=== PATIENT | male | born 1975 | race American Indian/Alaskan Native ===

== ENCOUNTER 2016-12-29 21:15 | Emergency (ER) | payer OTHER ==
[2016-12-29 21:44] LABS: Urine Drugs of Abuse Note Disclamer
[2016-12-29 21:47] LABS: Basophils % (Auto) 0.5 % (0.0-1.8); Eosinophils % (Auto) 0.1 % (0.0-4.3); Hematocrit 37.5 % (35.5-45.6); Hemoglobin 12.6 gm/dl (11.8-15.2); Mean Corpuscular HGB Conc 34 % (32-34); Mean Corpuscular Hemoglobin 31 pg (28-32); Mean Corpuscular Volume 91 fl (84-94); Platelet Count 269 K/mm3 (140-440); Red Blood Count 4.12 M/mm3 (3.65-5.03); Red Cell Distribution Width 14.3 % (13.2-15.2); White Blood Count 9.8 K/mm3 (4.5-11.0)
[2016-12-29 21:50] LABS: Bilirubin,Urine NEG (Negative); Blood,Urine NEG (Negative); Ketones,Urine NEG (Negative); Leukocyte Esterase,Urine NEG (Negative); Mucus,Urine FEW /HPF; Nitrite,Urine NEG (Negative); Protein,Urine <15 mg/dL mg/dL (Negative); Urobilinogen,Urine < 2.0 mg/dL (<2.0); WBC,Urine < 1.0 /HPF (0.0-6.0)
[2016-12-29 21:56] LABS: Anion Gap 19 mmol/L; BUN/Creatinine Ratio 18.88; Blood Urea Nitrogen 17 mg/dL (9-20); Carbon Dioxide 24 mmol/L (22-30); Chloride 102.4 mmol/L (98-107); Glucose 86 mg/dL (75-100); Potassium 4.3 mmol/L (3.6-5.0); Sodium 141 mmol/L (137-145)
--- NOTE | 2016-12-29 22:44 | Emergency Department Report ---
ED Psych HPI - General Chief Complaint: Psych Stated Complaint: MEDICAL CLEARANCE Time Seen by Provider: 12/29/16 21:52 Source: patient Mode of arrival: Ambulatory - History of Present Illness Initial Comments: 41-year-old male with a history of psychiatric illness here with complaint of suicidality. Patient states he recently used cocaine and feels depressed. States that he wants to harm himself. Could not give me a defined plan. Recently discharged from [facility]. Denies other medical problems. States that he is on lithium but hasn't taken it for 5 months. MD Complaint: suicidal ideation -: Sudden Associated Psychiatric Symptoms: depression, suicidal ideation Quality: constant Improves With: none Worsens With: none Context: recent drug abuse, not taking psychiatric Associated Symptoms: denies other symptoms, headache - Related Data Home Medications Medication Instructions Recorded Confirmed Last Taken No Known Home Medications [No 12/14/15 01/14/16 Unknown Reported Home Medications] Allergies Allergy/AdvReac Type Severity Reaction Status Date / Time No Known Allergies Allergy Verified 01/13/16 23:21 ED Review of Systems ROS: Stated complaint: MEDICAL CLEARANCE Other details as noted in HPI Comment: All other systems reviewed and negative Constitutional: denies: chills, fever Eyes: denies: eye pain, eye discharge, vision change ENT: denies: ear pain, throat pain Respiratory: denies: cough, shortness of breath, wheezing Cardiovascular: denies: chest pain, palpitations Endocrine: no symptoms reported Gastrointestinal: denies: abdominal pain, nausea, diarrhea Genitourinary: denies: urgency, dysuria Musculoskeletal: denies: back pain, joint swelling, arthralgia Skin: denies: rash, lesions Neurological: denies: headache, weakness, paresthesias Psychiatric: denies: anxiety, depression Hematological/Lymphatic: denies: easy bleeding, easy bruising ED Past Medical Hx - Past Medical History Previous Medical History?: Yes Hx Congestive Heart Failure: No Hx Diabetes: No Hx Liver Disease: Yes (Hep C.) Hx Psychiatric Treatment: Yes (BIPOLAR) Hx Asthma: No Hx COPD: No Hx HIV: No - Surgical History Past Surgical History?: Yes Additional Surgical History: hernia repair - Family History Family history: no significant - Social History Smoking Status: Current Every Day Smoker Substance Use Type: Alcohol, Cocaine, Other - Medications Home Medications: Home Medications Medication Instructions Recorded Confirmed Last Taken Type No Known Home Medications [No 12/14/15 01/14/16 Unknown History Reported Home Medications] ED Physical Exam - General Limitations: No Limitations General appearance: alert, in no apparent distress - Head Head exam: Present: atraumatic, normocephalic - Eye Eye exam: Present: normal appearance. Absent: scleral icterus, conjunctival injection - ENT ENT exam: Present: mucous membranes moist - Neck Neck exam: Present: normal inspection - Respiratory Respiratory exam: Present: normal lung sounds bilaterally. Absent: respiratory distress - Cardiovascular Cardiovascular Exam: Present: regular rate, normal rhythm. Absent: systolic murmur, diastolic murmur, rubs, gallop - GI/Abdominal GI/Abdominal exam: Present: soft, normal bowel sounds - Rectal Rectal exam: Present: deferred - Extremities Exam Extremities exam: Present: normal inspection - Back Exam Back exam: Present: normal inspection - Neurological Exam Neurological exam: Present: alert, oriented X3 - Psychiatric Psychiatric exam: Present: normal affect, depressed, suicidal ideation - Skin Skin exam: Present: warm, dry, intact, normal color. Absent: rash ED Course Vital Signs 12/29/16 21:21 Temperature 99.1 F Pulse Rate 90 Respiratory 18 Rate Blood Pressure 150/90 O2 Sat by Pulse 98 Oximetry ED Medical Decision Making - Lab Data Result diagrams: 12/29/16 21:30 12/29/16 21:30 Laboratory Results - last 24 hr 12/29/16 12/29/16 12/29/16 21:30 21:30 21:38 WBC 9.8 RBC 4.12 Hgb 12.6 Hct 37.5 MCV 91 MCH 31 MCHC 34 RDW 14.3 Plt Count 269 Lymph % (Auto) 13.0 L [place] % (Auto) 6.7 Eos % (Auto) 0.1 Baso % (Auto) 0.5 Lymph # 1.3 [place] # 0.7 Eos # 0.0 Baso # 0.0 Seg Neutrophils % 79.7 H Seg Neutrophils # 7.8 H Sodium 141 Potassium 4.3 Chloride 102.4 Carbon Dioxide 24 Anion Gap 19 BUN 17 Creatinine 0.9 Estimated GFR > 60 BUN/Creatinine Ratio 18.88 Glucose 86 Calcium 9.0 Urine Color Yellow Urine Turbidity Clear Urine pH 7.0 Ur Specific [place] 1.021 Urine Protein <15 mg/dl Urine Glucose (UA) Neg Urine Ketones Neg Urine Blood Neg Urine Nitrite Neg Urine Bilirubin Neg Urine Urobilinogen < 2.0 Ur Leukocyte Esterase Neg Urine WBC (Auto) < 1.0 Urine RBC (Auto) 2.0 Urine Mucus Few Urine Opiates Screen Urine Methadone Screen Ur Barbiturates Screen Ur Phencyclidine Scrn Ur Amphetamines Screen U Benzodiazepines Scrn U Marijuana (THC) Screen 12/29/16 21:38 WBC RBC Hgb Hct MCV MCH MCHC RDW Plt Count Lymph % (Auto) [place] % (Auto) Eos % (Auto) Baso % (Auto) Lymph # [place] # Eos # Baso # Seg Neutrophils % Seg Neutrophils # Sodium Potassium Chloride Carbon Dioxide Anion Gap BUN Creatinine Estimated GFR BUN/Creatinine Ratio Glucose Calcium Urine Color Urine Turbidity Urine pH Ur Specific [place] Urine Protein Urine Glucose (UA) Urine Ketones Urine Blood Urine Nitrite Urine Bilirubin Urine Urobilinogen Ur Leukocyte Esterase Urine WBC (Auto) Urine RBC (Auto) Urine Mucus Urine Opiates Screen Presumptive negative Urine Methadone Screen Presumptive negative Ur Barbiturates Screen Presumptive negative Ur Phencyclidine Scrn Presumptive negative Ur Amphetamines Screen Presumptive negative U Benzodiazepines Scrn Presumptive negative U Marijuana (THC) Screen Presumptive negative - Medical Decision Making 41-year-old male here with complaint of suicidality. Plan a 1013. Patient is medically clear for further evaluation. Critical care attestation.: If time is entered above; I have spent that time in minutes in the direct care of this critically ill patient, excluding procedure time. ED Disposition Clinical Impression: Suicidal ideation, Cocaine abuse Disposition: DC/TX-65 PSY HOSP/PSY UNIT Is pt being admited?: No Condition: Stable
[2016-12-30] MEDS ORDERED: NACL 0.9% 1000 ML 0 ML ONE (12:17)
--- NOTE | 2016-12-30 17:07 | Consultation ---
History of Present Illness - Reason for Consult Consult date: 12/30/16 Reason for consult: psychiatric evaluation - Chief Complaint Chief complaint: "It's not worth going forward." 41-year-old male seen for psychiatric evaluation in the ER. He states he brought himself to the ER for suicidal ideation, hopeless, helpless ideation, and a plan to overdose on cocaine. He reports spending his entire paycheck on cocaine and losing a good job and everything because of cocaine. Patient states he recently used cocaine and feels depressed. He denies other illicit substance use or alcohol use. He reports a history of bipolar disorder. States that he is on lithium 300mg hs and zoloft 200mg daily but hasn't taken it for 5 months. He reports going to [facility] (last time 02/2016) x before and did well until he relapsed 7 months ago. He wants to return there and has spoken with Mr. Zepeda, the leader. He is under the impression he may return after stabilization of current symptoms. He describes a history of manic episodes when he had sustained abstinence. He reports a history of delusional episodes with auditory hallucinations, but denies psychotic symptoms now. Medications and Allergies Allergies Allergy/AdvReac Type Severity Reaction Status Date / Time No Known Allergies Allergy Verified 01/13/16 23:21 Home Medications Medication Instructions Recorded Confirmed Last Taken Type No Known Home Medications [No 12/14/15 01/14/16 Unknown History Reported Home Medications] Past psychiatric history - Past Medical History Past Medical History: hepatitis (C) - past Psychiatric treatment and history Psych: Bipolar - Social History Social history: other (lost his job and care. His children live in [place]) Mental Status Exam - Vital signs Last Vital Signs Temp 98.5 F 12/30/16 12:27 Pulse 65 12/30/16 12:27 Resp 16 12/30/16 12:27 BP 134/81 12/30/16 12:27 Pulse Ox 99 12/30/16 12:27 - Exam Orientation: time, place, person Affect: depressed Mood: other (expansive) Thought content: other (suicidal ideation with a plan. no HI) Thought Process: Intact Perceptions: none Speech: other (hyperverbal) Concentration: distractible Motor activity: normal Level of consciousness: alert Memory: Intact Sleep Symptoms: Difficulty Falling Asleep Appetite: decreased Interaction: cooperative Results Result Diagrams: 12/29/16 21:30 12/29/16 21:30 Abnormal lab results 12/29/16 Range/Units 21:30 Lymph % (Auto) 13.0 L (13.4-35.0) % Seg Neutrophils % 79.7 H (40.0-70.0) % Seg Neutrophils # 7.8 H (1.8-7.7) K/mm3 All other labs normal. Assessment and Plan Assessment and plan: Impression: cocaine use disorder bipolar disorder, historical diagnosis suicidal with a plan. UDS + for cocaine Recommendation: Start [place] 300mg bid for mood stabilization/depressive symptoms. If patient in the ER in 5 days, a level will be drawn. His current labs were reviewed. No contraindications for the use of lithium. The patient is agreeable to restarting it. Continue 1013 and transfer to inpatient psychiatric facility for crisis stabilization We will contact [facility] to determine if he could return soon.
[2016-12-30] MEDS: ESKALITH PO SCH (23:05)
[2016-12-31] MEDS: ESKALITH PO SCH ×2 (10:00→22:09)
--- NOTE | 2016-12-31 14:27 | Progress Note ---
Subjective - Reason for Consult Consult date: 12/31/16 Reason for consult: follow up - Chief Complaint Chief complaint: "I'm still depressed." 41-year-old male seen for psychiatric evaluation in the ER. He states he brought himself to the ER for suicidal ideation, hopeless, helpless ideation, and a plan to overdose on cocaine. He reported spending his entire paycheck on cocaine and losing a good job and everything because of cocaine. He is focused on going to rehab. He wants to return to [facility] and has spoken with Esthela Duane, the leader. He asks that we speak with Sam, the director. He is under the impression he may return after stabilization of current symptoms. He continues to report depressive symptoms and paranoia. He started lithium and reports no side effects. Mental Status Exam - Vital signs Last Vital Signs Temp 98.5 F 12/31/16 00:00 Pulse 72 12/31/16 00:00 Resp 18 12/31/16 10:00 BP 124/60 12/31/16 00:00 Pulse Ox 100 12/31/16 10:00 Assessment and Plan - Exam Orientation: time, place, person Affect: depressed Mood: calm Thought content: passive SI, no HI Thought Process: Intact Perceptions: none Speech: other (hyperverbal) Concentration: distractible Motor activity: normal Level of consciousness: alert Memory: Intact Sleep Symptoms: Difficulty Falling Asleep Appetite: decreased Interaction: cooperative Assessment and plan: Impression: cocaine use disorder bipolar disorder, historical diagnosis suicidal with a plan. UDS + for cocaine Recommendation: Start [place] 300mg bid for mood stabilization/depressive symptoms. If patient in the ER in 5 days, a level will be drawn. His current labs were reviewed. No contraindications for the use of lithium. The patient is agreeable to restarting it. Continue 1013 and transfer to inpatient psychiatric facility for crisis stabilization We will contact [facility] to determine if he could return soon.
[2017-01-01] MEDS: ESKALITH PO SCH ×2 (10:15→21:50)
--- NOTE | 2017-01-01 16:44 | Progress Note ---
Subjective - Reason for Consult Consult date: 01/01/17 Reason for consult: follow up - Chief Complaint Chief complaint: "My eyes have been heavy when I take the medicine." 41-year-old male seen for psychiatric follow in the ER. He states he brought himself to the ER for suicidal ideation, hopeless, helpless ideation, and a plan to overdose on cocaine. He wants to return to [facility] and has spoken with Esthela Duane, the leader. He continues to report depressive symptoms and paranoia. He started lithium and reports being hungrier than normal and his eyes are heavy. He does not want the lithium scheduled changed.. Mental Status Exam - Vital signs Last Vital Signs Temp 98.7 F 12/31/16 22:00 Pulse 64 12/31/16 22:00 Resp 16 12/31/16 22:00 BP 118/60 12/31/16 22:00 Pulse Ox 99 12/31/16 12:30 Assessment and Plan - Exam Orientation: time, place, person Affect: depressed Mood: calm Thought content: passive SI, no HI Thought Process: Intact Perceptions: none Speech: regular rate and rhythm Concentration: fair Motor activity: normal Level of consciousness: alert Memory: Intact Sleep Symptoms: fair Appetite: increased Interaction: cooperative Assessment and plan: Impression: cocaine use disorder bipolar disorder, historical diagnosis suicidal with a plan. UDS + for cocaine Recommendation: Continue [place] 300mg bid for mood stabilization/depressive symptoms. If patient in the ER in 5 days, a level will be drawn. His current labs were reviewed. No contraindications for the use of lithium. The patient is agreeable to restarting it. Continue 1013 and transfer to inpatient psychiatric facility for crisis stabilization He is recommended to discuss his plan to return to [facility] after inpatient treatment at [facility]. He has been accepted but awaiting transport time.
[2017-01-02] MEDS: ESKALITH PO SCH (09:55)
--- NOTE | 2017-01-02 13:23 | Progress Note ---
Subjective - Reason for Consult Consult date: 01/02/17 Reason for consult: Psychiatry Follow-up - Chief Complaint Chief complaint: "I look forward to being discharged" 41-year-old male seen for psychiatric follow in the ER. He states he brought himself to the ER for suicidal ideation, hopeless, helpless ideation, and a plan to overdose on cocaine. Today patient is calm and cooperative during the assessment. He stated that he want to return to [facility] (residential) and continue outpatient psy services for Bipolar DO and substance abuse (cocaine ) with the [facility]. He stated his main concern is staying off the cocaine. He denies SI/HI's and AVH's. He rate his depression, 3/10, with 10 being the worse. He stated an increased appetite since he started lithium. He does not want the lithium scheduled changed. Mental Status Exam - Vital signs Last Vital Signs Temp 98.5 F 01/02/17 08:48 Pulse 68 01/02/17 08:48 Resp 18 01/02/17 08:48 BP 115/71 01/02/17 08:48 Pulse Ox 100 01/02/17 08:48 - Exam Narrative exam: MSE: Appearance: cooperative, anxious Behavior: regular eye contact Speech: regular rate and tone Mood: "well" Affect: congruent to mood Thought Process: linear Thought Content: denies SI/HI's and AVH's Motor Activity: ambulatory Cognition: A/Ox 3 Insight: fair Judgment: fair Assessment and Plan Impression: Historical Dx: Bipolar DO. Substance Use DO (cocaine). Today patient is calm and cooperative during the assessment. Patient denies SI/AVH's. Patient is no threat to self. Recommendation: Rescind 1013. Continue [place] 300mg Po BID for mood stabilization/depressive symptoms. Patient will follow up with [facility] for outpatient psy services. Patient stated that he will return to [facility] homeless residential. Informed patient to get lithium level checked in 2 days with the [facility]. He started the medication 12/30/2016. Nurse Practical involvement, patient may need transportation to [facility] homeless residential.
--- NOTE | 2017-01-02 15:24 | Emergency Department Report ---
ED Psych HPI - General Chief Complaint: Psych Stated Complaint: MEDICAL CLEARANCE Time Seen by Provider: 12/29/16 21:52 Source: patient Mode of arrival: Ambulatory - History of Present Illness Quality: constant Improves With: none Worsens With: none Associated Symptoms: denies other symptoms, headache - Related Data Home Medications Medication Instructions Recorded Confirmed Last Taken No Known Home Medications [No 12/14/15 12/31/16 Unknown Reported Home Medications] Allergies Allergy/AdvReac Type Severity Reaction Status Date / Time No Known Allergies Allergy Verified 01/13/16 23:21 ED Review of Systems ROS: Stated complaint: MEDICAL CLEARANCE Other details as noted in HPI Constitutional: denies: chills, fever Eyes: denies: eye pain, eye discharge, vision change ENT: denies: ear pain, throat pain Respiratory: denies: cough, shortness of breath, wheezing Cardiovascular: denies: chest pain, palpitations Endocrine: no symptoms reported Gastrointestinal: denies: abdominal pain, nausea, diarrhea Genitourinary: denies: urgency, dysuria Musculoskeletal: denies: back pain, joint swelling, arthralgia Skin: denies: rash, lesions Neurological: denies: headache, weakness, paresthesias Psychiatric: denies: anxiety, depression Hematological/Lymphatic: denies: easy bleeding, easy bruising ED Past Medical Hx - Past Medical History Previous Medical History?: Yes Hx Congestive Heart Failure: No Hx Diabetes: No Hx Liver Disease: Yes (Hep C.) Hx Psychiatric Treatment: Yes (BIPOLAR) Hx Asthma: No Hx COPD: No Hx HIV: No - Surgical History Past Surgical History?: Yes Additional Surgical History: hernia repair - Social History Smoking Status: Current Every Day Smoker Substance Use Type: Alcohol, Cocaine, Other - Medications Home Medications: Home Medications Medication Instructions Recorded Confirmed Last Taken Type No Known Home Medications [No 12/14/15 12/31/16 Unknown History Reported Home Medications] ED Physical Exam - General Limitations: No Limitations General appearance: alert, in no apparent distress ED Course Vital Signs 12/29/16 12/30/16 12/30/16 21:21 10:27 12:27 Temperature 99.1 F 98.5 F Pulse Rate 90 65 Respiratory 18 18 16 Rate Blood Pressure 150/90 Blood Pressure 134/81 [Left] Blood Pressure [Right] O2 Sat by Pulse 98 98 99 Oximetry 12/31/16 12/31/16 12/31/16 00:00 10:00 12:30 Temperature 98.5 F 98.4 F Pulse Rate 72 84 Respiratory 18 18 18 Rate Blood Pressure Blood Pressure 124/60 128/78 [Left] Blood Pressure [Right] O2 Sat by Pulse 100 100 99 Oximetry 12/31/16 01/01/17 01/01/17 22:00 10:15 22:00 Temperature 98.7 F 98.7 F 98.8 F Pulse Rate 64 65 94 H Respiratory 16 18 18 Rate Blood Pressure Blood Pressure 118/60 111/62 94/59 [Left] Blood Pressure [Right] O2 Sat by Pulse 100 98 Oximetry 01/02/17 08:48 Temperature 98.5 F Pulse Rate 68 Respiratory 18 Rate Blood Pressure Blood Pressure [Left] Blood Pressure 115/71 [Right] O2 Sat by Pulse 98 Oximetry ED Medical Decision Making - Lab Data Result diagrams: 12/29/16 21:30 12/29/16 21:30 - Medical Decision Making Patient is calm and has no further suicidal thoughts at this point. Tender T and rescinded by psychiatry. Plan to discharge with follow-up at [facility] versus [facility]. Resources provided by case management. Critical care attestation.: If time is entered above; I have spent that time in minutes in the direct care of this critically ill patient, excluding procedure time. ED Disposition Clinical Impression: Suicidal thoughts Disposition: DC-01 TO HOME OR SELFCARE Is pt being admited?: No Condition: Stable Instructions: Suicide Prevention for Adults (ED) Referrals: PRIMARY CARE, [Primary Care Provider] - 3-5 Days
[2017-01-02 15:49] VITALS: BP 100/71
== END 2017-01-02 15:52 | disposition home or self-care (01) ==
LOC: ED 21:15 → EEVIPCON 21:15 → ED 01-02 15:52
DX: R45.851 Suicidal ideations (principal); F14.10 Cocaine abuse, uncomplicated; F31.9 Bipolar disorder, unspecified; F17.200 Nicotine dependence, unspecified, uncomplicated
CPT/HCPCS: 36415; 80048; 80307; 81001; 85025; 99285; G0480; 80320; J7030

== ENCOUNTER 2017-01-15 00:22 | Emergency (ER) | payer OTHER ==
[2017-01-15] MEDS ORDERED: GEODON IM ONE (01:03)
--- NOTE | 2017-01-15 01:09 | Emergency Department Report ---
ED Psych HPI - General Chief Complaint: Psych Stated Complaint: MH EVAL/SUICIDAL Time Seen by Provider: 01/15/17 00:58 Source: patient Mode of arrival: Ambulatory - History of Present Illness Initial Comments: 41 years old and so schizophrenia presented to the ER very agitated and complaining of suicidal thoughts. Patient stated that he is angry that his his left him and his mother is getting more confused. Patient stated that he will go [facility] and on Monday if he is not here. Complaint: suicidal ideation -: Gradual Associated Psychiatric Symptoms: depression, suicidal ideation, racing thoughts - Related Data Home Medications Medication Instructions Recorded Confirmed Last Taken No Known Home Medications [No 12/14/15 12/31/16 Unknown Reported Home Medications] Allergies Allergy/AdvReac Type Severity Reaction Status Date / Time No Known Allergies Allergy Verified 01/15/17 00:38 ED Review of Systems ROS: Stated complaint: MH EVAL/SUICIDAL Other details as noted in HPI Comment: All other systems reviewed and negative Constitutional: denies: chills, fever Respiratory: cough, shortness of breath. denies: orthopnea, SOB with exertion Cardiovascular: denies: chest pain, dyspnea on exertion Neurological: denies: headache ED Past Medical Hx - Past Medical History Previous Medical History?: Yes Hx Congestive Heart Failure: No Hx Diabetes: No Hx Liver Disease: Yes (Hep C.) Hx Psychiatric Treatment: Yes (BIPOLAR) Hx Asthma: No Hx COPD: No Hx HIV: No - Surgical History Past Surgical History?: Yes Additional Surgical History: hernia repair - Social History Smoking Status: Current Every Day Smoker Substance Use Type: None - Medications Home Medications: Home Medications Medication Instructions Recorded Confirmed Last Taken Type No Known Home Medications [No 12/14/15 12/31/16 Unknown History Reported Home Medications] ED Physical Exam - General Limitations: No Limitations General appearance: alert, other (very agitated) - Head Head exam: Present: atraumatic, normocephalic - Eye Eye exam: Present: normal appearance - ENT ENT exam: Present: normal exam - Neck Neck exam: Present: normal inspection, full ROM. Absent: tenderness, meningismus - Respiratory Respiratory exam: Present: normal lung sounds bilaterally. Absent: wheezes, rales, rhonchi, stridor - Cardiovascular Cardiovascular Exam: Present: regular rate, normal rhythm, normal heart sounds - GI/Abdominal GI/Abdominal exam: Present: soft. Absent: tenderness, guarding, rebound, rigid - Extremities Exam Extremities exam: Present: normal inspection - Back Exam Back exam: Present: normal inspection - Neurological Exam Neurological exam: Present: alert, oriented X3, CN II-XII intact - Skin Skin exam: Present: warm, normal color ED Course Vital Signs 01/15/17 00:39 Temperature 98.5 F Pulse Rate 95 H Respiratory 18 Rate Blood Pressure 120/93 O2 Sat by Pulse 99 Oximetry Critical care attestation.: If time is entered above; I have spent that time in minutes in the direct care of this critically ill patient, excluding procedure time. ED Disposition Clinical Impression: Acute psychosis, Suicidal ideation Disposition: DC/TX-65 PSY HOSP/PSY UNIT Is pt being admited?: No Condition: Stable
[2017-01-15 01:24] LABS: Urine Drugs of Abuse Note Disclamer
[2017-01-15 01:29] LABS: Basophils % (Auto) 0.6 % (0.0-1.8); Eosinophils % (Auto) 0.1 % (0.0-4.3); Hematocrit 37.7 % (35.5-45.6); Hemoglobin 12.7 gm/dl (11.8-15.2); Mean Corpuscular HGB Conc 34 % (32-34); Mean Corpuscular Hemoglobin 30 pg (28-32); Mean Corpuscular Volume 90 fl (84-94); Platelet Count 281 K/mm3 (140-440); Red Blood Count 4.18 M/mm3 (3.65-5.03); White Blood Count 10.6 K/mm3 (4.5-11.0)
[2017-01-15 01:32] LABS: Bilirubin,Urine NEG (Negative); Blood,Urine NEG (Negative); Ketones,Urine NEG (Negative); Leukocyte Esterase,Urine NEG (Negative); Mucus,Urine 1+ /HPF; Nitrite,Urine NEG (Negative); RBC,Urine < 1.0 /HPF (0.0-6.0); Urobilinogen,Urine < 2.0 mg/dL (<2.0)
[2017-01-15 01:51] LABS: Alanine Aminotransferase 12 units/L (7-56); Albumin 4.2 g/dL (3.9-5); Albumin/Globulin Ratio 1.1 %; Alkaline Phosphatase 70 units/L (35-129); Anion Gap 21 mmol/L; BUN/Creatinine Ratio 17.77; Blood Urea Nitrogen 16 mg/dL (9-20); Calcium 9.4 mg/dL (8.4-10.2); Carbon Dioxide 19 mmol/L (22-30); Chloride 103.9 mmol/L (98-107); Glucose 54 mg/dL (75-100); Potassium 3.3 mmol/L (3.6-5.0); Sodium 141 mmol/L (137-145)
--- NOTE | 2017-01-15 17:27 | Consultation ---
History of Present Illness - Reason for Consult Consult date: 01/15/17 Reason for consult: psychiatric evaluation - Chief Complaint Chief complaint: "I dont want to be here anymore." 41 years old who presented to the ER very agitated and complaining of suicidal thoughts. Patient stated that he is angry that his his left him and his mother is getting more confused. On arrival to the ER, per the record, patient stated that he will go [facility] and on Monday if he is not here.He was in the ER for similar reasons 2 weeks ago. He reports relapsing on crack again. He reports feeling guilty and angry at himself for repeatedly relapsing. When he left the ER 2 weeks ago, he went to the [facility], and later the [facility] He did well for a week and then relapsed. He states something must be wrong with him because he keeps relapsing when things start going well for him. He reports paranoia and depression and mood swings. He reports being agitated last night because he was waiting in the ER. He denies AVH. No homicidal ideation.He describes a history of manic episodes when he had sustained abstinence. Past psychiatric history - Past Medical History Past Medical History: hepatitis (C) - past Psychiatric treatment and history Psych: Bipolar - Social History Social history: other (lost his job and car. His children live in [place]) Medications and Allergies Allergies Allergy/AdvReac Type Severity Reaction Status Date / Time No Known Allergies Allergy Verified 01/15/17 00:38 Home Medications Medication Instructions Recorded Confirmed Last Taken Type No Known Home Medications [No 12/14/15 01/15/17 Unknown History Reported Home Medications] Mental Status Exam - Vital signs Last Vital Signs Temp 98.3 F 01/15/17 08:04 Pulse 62 01/15/17 08:04 Resp 16 01/15/17 08:05 BP 124/70 01/15/17 08:04 Pulse Ox 99 01/15/17 08:05 - Exam Narrative exam: Orientation: time, place, person Affect: congruent Mood: depressed Thought content: other (suicidal ideation with a plan. no HI) Thought Process: Intact Perceptions: none Speech: other (hyperverbal) Concentration: distractible Motor activity: normal Level of consciousness: alert Memory: Intact Sleep Symptoms: Difficulty Falling Asleep Appetite: decreased Interaction: cooperative Results Result Diagrams: 01/15/17 01:10 01/15/17 01:10 Abnormal lab results 01/15/17 01/15/17 01/15/17 Range/Units 01:10 01:10 01:10 [place] % (Auto) 7.4 H (0.0-7.3) % Seg Neutrophils % 70.4 H (40.0-70.0) % Potassium 3.3 L (3.6-5.0) mmol/L Carbon Dioxide 19 L (22-30) mmol/L Glucose 54 L (75-100) mg/dL Salicylates < 0.3 L (2.8-20.0) mg/dL All other labs normal. Assessment and Plan Assessment and plan: Impression: cocaine use disorder bipolar disorder, historical diagnosis suicidal UDS + for cocaine Recommendation: Start [place] 300mg bid for mood stabilization/depressive symptoms. If patient in the ER in 5 days, a level will be drawn. His current labs were reviewed. No contraindications for the use of lithium. The patient is agreeable to restarting it. Continue 1013 and transfer to inpatient psychiatric facility for crisis stabilization
[2017-01-15] MEDS: ESKALITH PO SCH (21:33)
[2017-01-16] MEDS: ESKALITH PO SCH ×2 (11:06→22:46)
--- NOTE | 2017-01-16 12:04 | Progress Note ---
Subjective - Reason for Consult Consult date: 01/16/17 Reason for consult: Psychiatry Follow-up - Chief Complaint Chief complaint: "How are you" 41 years old who presented to the ER very agitated and complaining of suicidal thoughts. Today patient is calm and cooperative during the assessment. He stated hearing intermittent voices about "dying" since last night. He stated this being his first experience dealing with voices. He stated he want to stay off cocaine and see his kids in [place], but he feels that their mom will not allow it. He described his sleep last night as erratic. He denies HI's and VH' s. He denies a poor appetite. Mental Status Exam - Vital signs Last Vital Signs Temp 98.7 F 01/16/17 11:47 Pulse 64 01/16/17 11:47 Resp 20 01/16/17 11:47 BP 126/67 01/16/17 11:47 Pulse Ox 99 01/16/17 11:47 - Exam Narrative exam: MSE: Appearance: calm, cooperative Behavior: regular eye contact Speech: regular rate and tone Mood: "depressed" Affect: congruent to mood Thought Process: linear Thought Content: denies SI and VH's Motor Activity: ambulatory Cognition: A/Ox 3 Insight: variable Judgment: variable Assessment and Plan Impression: Historical Dx: Bipolar Dx. Unspecified Mood Do with psy features. Substance Use DO (cocaine). Today patient is calm and cooperative during the assessment. Positive for cocaine. SI's. Recommendation/Plan: Continue 1013 with placement to inpatient psy services. Continue [place] 300mg bid for mood stabilization/depression. If patient is still in the ER in 5 days, a lithium level will be drawn. His current labs were reviewed. No contraindications for the use of lithium. Will assess patient's sleep and intermittent AH's in 24 hours.
[2017-01-17] MEDS: ESKALITH PO SCH ×2 (10:28→22:46)
--- NOTE | 2017-01-17 12:44 | Progress Note ---
Subjective - Reason for Consult Consult date: 01/17/17 Reason for consult: Psychiatry Follow-up - Chief Complaint Chief complaint: "The voices are gone" 41 years old who presented to the ER very agitated and complaining of suicidal thoughts. Today patient is calm and cooperative during the assessment. He stated that the voices has ceased. He stated that he would like to return back to the [facility] ([facility] He denies SI/HI's, AVH's, and depression. He stated that he want to stay off the cocaine and willing to do rehab services once again. Patient have questions about getting his social security card. He denies any side effects of his medications. Mental Status Exam - Vital signs Last Vital Signs Temp 98.7 F 01/16/17 11:47 Pulse 64 01/16/17 11:47 Resp 20 01/16/17 11:47 BP 126/67 01/16/17 11:47 Pulse Ox 98 01/17/17 07:45 - Exam Narrative exam: MSE: Appearance: calm, cooperative Behavior: regular eye contact Speech: regular rate and tone Mood: "much better" Affect: congruent to mood Thought Process: circumstantial Thought Content: denies SI/HI's and AVH's Motor Activity: ambulatory Cognition: A/Ox 3 Insight: variable Judgment: variable Assessment and Plan Impression: Historical Dx: Bipolar Dx. Unspecified Mood Do with psychotic features. Substance Use DO (cocaine). Today patient is calm and cooperative during the assessment. Positive for cocaine. Recommendation/Plan: Evaluate 1013 in 24 hours to determine proper dispo. Continue [place] 300mg bid for mood stabilization/depression. If patient is still in the ER in 5 days, a lithium level will be drawn. His current labs were reviewed. No contraindications for the use of lithium. Patient seen by Psychologist Educational to inform him on the process of getting a social security card.
[2017-01-18] MEDS: ESKALITH PO SCH ×2 (11:14→21:35)
--- NOTE | 2017-01-19 10:00 | Progress Note ---
Subjective - Reason for Consult Consult date: 01/19/17 Reason for consult: Psychiatry Follow-up - Chief Complaint Chief complaint: "Can I leave today" 41 years old who presented to the ER very agitated and complaining of suicidal thoughts. Today patient is calm and cooperative during the assessment. He stated that he would like to be discharged today. He denies SI/HI's, AVH's, and depression. He stated that he would like to return to [facility] ([facility]) . He stated once he is discharged, getting his social security card is priority. He denies any side effects of Harold. Mental Status Exam - Vital signs Last Vital Signs Temp 98.1 F 01/18/17 19:45 Pulse 65 01/18/17 19:45 Resp 18 01/18/17 19:45 BP 131/90 01/18/17 19:45 Pulse Ox 100 01/18/17 19:45 - Exam Narrative exam: MSE: Appearance: calm, cooperative Behavior: regular eye contact Speech: regular rate and tone Mood: "well" Affect: congruent to mood Thought Process: linear Thought Content: denies SI/HI's and AVH's Motor Activity: ambulatory Cognition: A/Ox 3 Insight: fair Judgment: fair Assessment and Plan Impression: Historical Dx: Bipolar Dx. Unspecified Mood Do with psychotic features. Substance Use DO (cocaine). Today patient is calm and cooperative during the assessment. Positive for cocaine. [place] 0.2. Recommendation/Plan: Rescind 1013. Continue [place] 300 mg bid for mood stabilization/depression. Strap Cutter provided information to patient reference the process on how to get a social security card. Patient will return to [facility] ([facility] Discussed with patient s/s of lithium toxicity. Explained to patient the importance of getting his lithium level checked when indicated. Patient was given outpatient rehab/psy services information for [facility].
[2017-01-19] MEDS: ESKALITH PO SCH (10:37)
[2017-01-19 12:46] VITALS: BP 115/68
[2017-01-19] MEDS ORDERED: K-DUR PO ONE (17:51)
== END 2017-01-19 19:12 | disposition home or self-care (01) ==
LOC: ED 00:22 → EEVIPCON 00:22 → ED 01-19 19:12
DX: R45.851 Suicidal ideations (principal); F23 Brief psychotic disorder; F17.200 Nicotine dependence, unspecified, uncomplicated
CPT/HCPCS: 36415; 80053; 80178; 80307; 81001; 82962; 85025; 99284; G0480; 80320

== ENCOUNTER 2017-01-29 05:20 | Emergency (ER) | payer OTHER ==
[2017-01-29 05:29] VITALS: BP 124/83
[2017-01-29 06:06] LABS: Hematocrit 38.1 % (35.5-45.6); Hemoglobin 12.7 gm/dl (11.8-15.2); Red Blood Count 4.25 M/mm3 (3.65-5.03); White Blood Count 8.4 K/mm3 (4.5-11.0)
[2017-01-29 06:07] LABS: Basophils % (Auto) 0.7 % (0.0-1.8); Eosinophils % (Auto) 0.1 % (0.0-4.3); Mean Corpuscular HGB Conc 34 % (32-34); Mean Corpuscular Hemoglobin 30 pg (28-32); Mean Corpuscular Volume 90 fl (84-94); Platelet Count 273 K/mm3 (140-440); Red Cell Distribution Width 13.9 % (13.2-15.2)
[2017-01-29 06:14] LABS: Anion Gap 19 mmol/L; Blood Urea Nitrogen 20 mg/dL (9-20); Calcium 9.4 mg/dL (8.4-10.2); Carbon Dioxide 23 mmol/L (22-30); Chloride 102.9 mmol/L (98-107); Glucose 91 mg/dL (75-100); Potassium 3.8 mmol/L (3.6-5.0); Sodium 141 mmol/L (137-145)
== END 2017-01-29 08:00 | disposition left against medical advice (07) ==
LOC: ED 05:20
DX: R45.851 Suicidal ideations (principal); Z53.21 Procedure and treatment not carried out due to patient leaving prior to being seen by health care provider
CPT/HCPCS: 36415; 80048; 85025; G0480; 80320

== ENCOUNTER 2017-02-18 03:52 | Emergency (ER) | payer SELFPAY ==
[2017-02-18 04:53] LABS: Basophils % (Auto) 0.5 % (0.0-1.8); Eosinophils % (Auto) 0.1 % (0.0-4.3); Hemoglobin 11.9 gm/dl (11.8-15.2); Mean Corpuscular HGB Conc 34 % (32-34); Mean Corpuscular Hemoglobin 30 pg (28-32); Mean Corpuscular Volume 89 fl (84-94); Platelet Count 256 K/mm3 (140-440); Red Blood Count 3.93 M/mm3 (3.65-5.03); Red Cell Distribution Width 13.4 % (13.2-15.2); White Blood Count 8.1 K/mm3 (4.5-11.0)
[2017-02-18 05:05] LABS: Anion Gap 17 mmol/L; BUN/Creatinine Ratio 17.77; Blood Urea Nitrogen 16 mg/dL (9-20); Calcium 8.8 mg/dL (8.4-10.2); Carbon Dioxide 24 mmol/L (22-30); Chloride 103.4 mmol/L (98-107); Glucose 82 mg/dL (75-100); Sodium 140 mmol/L (137-145)
[2017-02-18 07:24] LABS: Urine Drugs of Abuse Note Disclamer
[2017-02-18 08:00] LABS: Bilirubin,Urine NEG (Negative); Blood,Urine NEG (Negative); Ketones,Urine TR mg/dL (Negative); Leukocyte Esterase,Urine NEG (Negative); Mucus,Urine 1+ /HPF; Nitrite,Urine NEG (Negative); Protein,Urine <15 mg/dL mg/dL (Negative)
[2017-02-18] MEDS ORDERED: MORPHINE IV ONE (11:53)
[2017-02-18] MEDS ORDERED: ZOFRAN IV ONE (11:53)
[2017-02-18] MEDS ORDERED: NITRO-BID 2% TP ONE (11:53)
[2017-02-18] MEDS ORDERED: ASPIRIN PO ONE (11:54)
--- NOTE | 2017-02-18 11:59 | Emergency Department Report ---
HPI - General Chief Complaint: Psych Time Seen by Provider: 02/18/17 11:42 - HPI HPI: Room 13 The patient is a 41-year-old male presented with a chief complaint of suicidal ideation. The patient states yesterday evening at 19:00 he attempted to kill himself by overdosing on cocaine. The patient states he smoked approximately $ 200 worth of cocaine at that time. Patient denies any other recent attempts at harming himself. The patient states that since he has smoked cocaine he has had constant substernal chest heaviness associated with shortness of breath, nausea without vomiting and diaphoresis. Patient states he also had palpitations at one point. Location: Chest, mental status Duration: Since 19:00 Quality: [see above] Severity: 08/29 Modifying factors: [see above] Context: [see above] Mode of transportation: Unknown ED Past Medical Hx - Past Medical History Previous Medical History?: Yes Hx Liver Disease: Yes (Hep C.) Hx Psychiatric Treatment: Yes (BIPOLAR) - Surgical History Past Surgical History?: Yes Additional Surgical History: hernia repair - Family History Family history: no significant - Social History Smoking Status: Current Every Day Smoker (1/2 pack per day) Substance Use Type: Alcohol (occasional), Cocaine - Medications Home Medications: Home Medications Medication Instructions Recorded Confirmed Last Taken Type [place] Carbonate [Eskalith] 300 mg PO BID #60 capsule 01/19/17 Unknown Rx ED Review of Systems ROS: Stated complaint: SUICIDE ATT. Other details as noted in HPI Comment: All other systems reviewed and negative Constitutional: diaphoresis. denies: chills, fever Eyes: denies: eye pain, eye discharge, vision change ENT: denies: ear pain, throat pain Respiratory: shortness of breath Cardiovascular: chest pain Endocrine: no symptoms reported Gastrointestinal: nausea. denies: vomiting Genitourinary: denies: urgency, dysuria Musculoskeletal: denies: back pain, joint swelling, arthralgia Skin: denies: rash, lesions Neurological: denies: headache, weakness, paresthesias Psychiatric: denies: anxiety, depression Hematological/Lymphatic: denies: easy bleeding, easy bruising Physical Exam - Physical Exam Vital Signs: Vital Signs 02/18/17 02/18/17 02/18/17 03:57 09:12 11:46 Temperature 98.4 F 97.6 F Pulse Rate 83 52 L Respiratory 18 18 20 Rate Blood Pressure 129/90 121/76 O2 Sat by Pulse 99 100 Oximetry Physical Exam: GENERAL: The patient is well-developed well-nourished male sleeping on stretcher not appearing to be in acute distress. Awakened HEENT: Normocephalic. Atraumatic. Extraocular motions are intact. Patient has moist mucous membranes. NECK: Supple. Trachea midline CHEST/LUNGS: Clear to auscultation. There is no respiratory distress noted. HEART/CARDIOVASCULAR: Regular. There is no tachycardia. There is no gallop rub or murmur. ABDOMEN: Abdomen is soft, nontender. Patient has normal bowel sounds. There is no abdominal distention. SKIN: There is no rash. There is no edema. There is no diaphoresis. NEURO: The patient is awake, alert, and oriented. The patient is cooperative. The patient has normal speech MUSCULOSKELETAL: There is no evidence of acute injury. ED Course Vital Signs 02/18/17 02/18/17 02/18/17 03:57 09:12 11:46 Temperature 98.4 F 97.6 F Pulse Rate 83 52 L Respiratory 18 18 20 Rate Blood Pressure 129/90 121/76 O2 Sat by Pulse 99 100 Oximetry ED Medical Decision Making - Lab Data Result diagrams: 02/18/17 04:24 02/18/17 04:24 Laboratory Tests 02/18/17 02/18/17 02/18/17 04:24 04:24 04:24 WBC 8.1 RBC 3.93 Hgb 11.9 Hct 35.0 L MCV 89 MCH 30 MCHC 34 RDW 13.4 Plt Count 256 Lymph % (Auto) 20.4 [place] % (Auto) 4.7 Eos % (Auto) 0.1 Baso % (Auto) 0.5 Lymph # 1.7 Coffee # 0.4 Eos # 0.0 Baso # 0.0 Seg Neutrophils % 74.3 H Seg Neutrophils # 6.0 Sodium 140 Potassium 4.0 Chloride 103.4 Carbon Dioxide 24 Anion Gap 17 BUN 16 Creatinine 0.9 Estimated GFR > 60 BUN/Creatinine Ratio 17.77 Glucose 82 Calcium 8.8 Total Creatine Kinase CK-MB (CK-2) CK-MB (CK-2) Rel Index Troponin T Urine Color Urine Turbidity Urine pH Ur Specific [place] Urine Protein Urine Glucose (UA) Urine Ketones Urine Blood Urine Nitrite Urine Bilirubin Urine Urobilinogen Ur Leukocyte Esterase Urine WBC (Auto) Urine RBC (Auto) Urine Mucus Salicylates Urine Opiates Screen Urine Methadone Screen Acetaminophen Ur Barbiturates Screen Ur Phencyclidine Scrn Ur Amphetamines Screen U Benzodiazepines Scrn [place] Urine Cocaine Screen U Marijuana (THC) Screen Plasma/Serum Alcohol < 0.01 02/18/17 02/18/17 02/18/17 04:24 04:24 07:20 WBC RBC Hgb Hct MCV MCH MCHC RDW Plt Count Lymph % (Auto) [place] % (Auto) Eos % (Auto) Baso % (Auto) Lymph # Coffee # Eos # Baso # Seg Neutrophils % Seg Neutrophils # Sodium Potassium Chloride Carbon Dioxide Anion Gap BUN Creatinine Estimated GFR BUN/Creatinine Ratio Glucose Calcium Total Creatine Kinase CK-MB (CK-2) CK-MB (CK-2) Rel Index Troponin T Urine Color Yellow Urine Turbidity Clear Urine pH 6.0 Ur Specific [place] 1.023 Urine Protein <15 mg/dl Urine Glucose (UA) Neg Urine Ketones Tr Urine Blood Neg Urine Nitrite Neg Urine Bilirubin Neg Urine Urobilinogen 2.0 Ur Leukocyte Esterase Neg Urine WBC (Auto) 1.0 Urine RBC (Auto) 1.0 Urine Mucus 1+ Salicylates < 0.3 L Urine Opiates Screen Urine Methadone Screen Acetaminophen < 15.0 Ur Barbiturates Screen Ur Phencyclidine Scrn Ur Amphetamines Screen U Benzodiazepines Scrn [place] 0.1 Urine Cocaine Screen U Marijuana (THC) Screen Plasma/Serum Alcohol 02/18/17 02/18/17 07:20 11:51 WBC RBC Hgb Hct MCV MCH MCHC RDW Plt Count Lymph % (Auto) Coffee % (Auto) Eos % (Auto) Baso % (Auto) Lymph # Coffee # Eos # Baso # Seg Neutrophils % Seg Neutrophils # Sodium Potassium Chloride Carbon Dioxide Anion Gap BUN Creatinine Estimated GFR BUN/Creatinine Ratio Glucose Calcium Total Creatine Kinase 422 H CK-MB (CK-2) 3.8 CK-MB (CK-2) Rel Index 0.9 Troponin T < 0.010 Urine Color Urine Turbidity Urine pH Ur Specific [place] Urine Protein Urine Glucose (UA) Urine Ketones Urine Blood Urine Nitrite Urine Bilirubin Urine Urobilinogen Ur Leukocyte Esterase Urine WBC (Auto) Urine RBC (Auto) Urine Mucus Salicylates Urine Opiates Screen Presumptive negative Urine Methadone Screen Presumptive negative Acetaminophen Ur Barbiturates Screen Presumptive negative Ur Phencyclidine Scrn Presumptive negative Ur Amphetamines Screen Presumptive negative U Benzodiazepines Scrn Presumptive negative [place] Urine Cocaine Screen Presumptive positive U Marijuana (THC) Screen Presumptive negative Plasma/Serum Alcohol - EKG Data -: EKG Interpreted by Me EKG shows normal: sinus rhythm Rate: bradycardia (53 bpm) - EKG Data When compared to previous EKG there are: previous EKG unavailable Interpretation: nonspecific ST-T wave naima (T-wave inversion in lead 3) - Radiology Data Radiology results: image reviewed (chest x-ray) interpreted by me: Chest x-ray-no focal infiltrate, no pneumothorax - Differential Diagnosis ACS, Prinzmetal angina, suicidal ideation, cocaine abuse Critical care attestation.: If time is entered above; I have spent that time in minutes in the direct care of this critically ill patient, excluding procedure time. ED Disposition Clinical Impression: Cocaine abuse, Suicidal ideation, Chest pain Disposition: 09 OP ADMIT IP TO THIS HOSP Is pt being admited?: Yes Does the pt Need Aspirin: Yes Condition: Serious Instructions: Chest Pain (ED) Referrals: PRIMARY CARE, [Primary Care Provider] - 3-5 Days Time of Disposition: 13:18 (hospitalist paged)
[2017-02-18 12:17] LABS: Lithium 0.1 mmol/L (0.0-1.2)
[2017-02-18 12:23] LABS: Creatine Kinase MB 3.8 ng/mL (0.0-4.0)
[2017-02-18 12:24] LABS: Creatine Kinase 422 units/L (55-170)
[2017-02-18 12:34] LABS: Salicylate < 0.3 mg/dL (2.8-20.0)
--- NOTE | 2017-02-18 12:46 | XRay Report ---
AP CHEST : 02/18/17 03:52:00 CLINICAL: Chest pain. COMPARISON:12/14/15 FINDINGS: Normal heart and pulmonary vessels. Mild pulmonary hyperinflation. The lungs are clear. The bones and soft tissues are unremarkable. IMPRESSION: Mild pulmonary hyperinflation but otherwise normal.
--- NOTE | 2017-02-18 14:29 | History and Physical Report ---
History of Present Illness Chief complaint: I took cocaine History of present illness: 41 YO male with HCV, Bipolar Disorder, Nicotine dependence presents to ED for evaluation of atypical chest pain secondary to cocaine use. Pt states that he took cocaine in an attempt to end his life. Pt seen and evaluated in ED. cardiac enzyme, ekg, and telemetry monitoring were negative for acute ischemia. Pt medically optimized and back to usual state of health. Pt seen and evaluated by Mental Health. Pt was initially placed on 1013 hold, but was subsequently seen and evaluated by mental health and myself. Pt does not meet admission criteria at this time, and does not present a danger to himself. Pt denies SI/ HI or plan at time of discharge. Pt has appointment to f/U with outpatient mental health service on monday. Past History Past Medical History: hepatitis, other (bipolar, nicotine dependence) Past Surgical History: hernia repair Social history: , smoking Family history: hypertension Medications and Allergies Allergies Allergy/AdvReac Type Severity Reaction Status Date / Time No Known Allergies Allergy Verified 01/15/17 00:38 Home Medications Medication Instructions Recorded Confirmed Last Taken Type [place] Carbonate [Eskalith] 300 mg PO BID #60 capsule 01/19/17 Unknown Rx Review of Systems Constitutional: no weight loss, no weight gain, no fever, no chills, no sweats Ears, nose, mouth and throat: no ear pain, no ear discharge, no tinnitis, no decreased hearing, no nose pain, no nasal congestion, no nasal discharge Cardiovascular: chest pain, no orthopnea, no palpitations, no rapid/irregular heart beat, no edema, no syncope, no lightheadedness, no shortness of breath, no dyspnea on exertion, no paroxysmal nocturnal dyspnea, no claudication, no phlebitis, no leg edema, no decreased exercise tolerance Respiratory: no cough, no cough with sputum, no excessive sputum, no hemoptysis , no shortness of breath, no dyspnea on exertion, no congestion, no wheezing Gastrointestinal: no abdominal pain, no nausea, no vomiting, no diarrhea, no constipation, no change in bowel habits, no hematemesis Genitourinary Male: no hematuria, no flank pain, no discharge, no urinary frequency, no urinary hesitancy, no nocturia, no incontinence Rectal: no pain, no incontinence, no bleeding Musculoskeletal: no neck stiffness, no neck pain, no shooting arm pain, no arm numbness/tingling, no low back pain, no shooting leg pain, no leg numbness/ tingling, no redness of joints Integumentary: no rash, no pruritis, no redness, no sores, no wounds, no jaundice, no boils, no blisters Neurological: no head injury, no transient paralysis, no paralysis, no weakness , no parathesias, no numbness, no tingling, no seizures, no syncope, no tremors , no ataxia, no headaches, no migraines, no convulsions, no aphasia, no change in speech Psychiatric: suicidal ideation, depression, no anxiety, no memory loss, no change in sleep habits, no sleep disturbances, no insomnia, no hypersomnia, no change in appetite, no change in libido, no disorientation, no hallucinations, no paranoia, no hopelessness, no anhedonia, no anxiety attacks, no difficulties concentrating, no confusion, no irritability, no sadness/tearfullness Endocrine: no cold intolerance, no heat intolerance, no polyphagia, no excessive thirst, no polydipsia, no polyuria, no nocturia, no excessive sweating , no flushing Hematologic/Lymphatic: no easy bruising, no easy bleeding Allergic/Immunologic: no urticaria, no allergic rhinitis, no wheezing Exam - Constitutional Vitals: Temp Pulse Resp BP Pulse Ox 97.6 F 52 L 20 121/76 100 02/18/17 09:12 02/18/17 09:12 02/18/17 11:46 02/18/17 09:12 02/18/17 09:12 General appearance: Present: no acute distress, well-nourished - EENT Eyes: Present: PERRL ENT: hearing intact, clear oral mucosa - Neck Neck: Present: supple, normal ROM - Respiratory Respiratory effort: normal Respiratory: bilateral: CTA - Cardiovascular Heart Sounds: Present: S1 & S2. Absent: rub, click - Extremities Extremities: pulses symmetrical, No edema Peripheral Pulses: within normal limits - Abdominal General gastrointestinal: Present: soft, non-tender, non-distended, normal bowel sounds Male genitourinary: Present: normal - Integumentary Integumentary: Present: clear, warm, dry - Musculoskeletal Musculoskeletal: gait normal, strength equal bilaterally - Psychiatric Psychiatric: appropriate mood/affect, intact judgment & insight - Neurologic Neurologic: CNII-XII intact, moves all extremities Results - Labs CBC & Chem 7: 02/18/17 04:24 02/18/17 04:24 Labs: Abnormal lab results 02/18/17 02/18/17 02/18/17 Range/Units 04:24 04:24 11:51 Hct 35.0 L (35.5-45.6) % Seg Neutrophils % 74.3 H (40.0-70.0) % Total Creatine Kinase 422 H (55-170) units/L Salicylates < 0.3 L (2.8-20.0) mg/dL Assessment and Plan - Patient Problems (1) Atypical chest pain Current Visit: Yes Status: Acute Plan to address problem: Cardiac workup unremarkable for acute ischemia. D/C home f/u pcp 1wk, cardiology prn (2) Cocaine abuse Current Visit: Yes Status: Acute Plan to address problem: Pt counseled regarding cessation, (3) Suicidal ideation Current Visit: Yes Status: Acute Plan to address problem: Mental health evaluated. Pt denies SI/HI/ Plan at time of discharge. Pt verbalized desire to live his life. Pt has mental health f/u appointment scheduled for Monday
[2017-02-18 15:59] VITALS: BP 114/57
== END 2017-02-18 16:53 | disposition home or self-care (01) ==
LOC: ED 03:52
DX: R45.851 Suicidal ideations (principal); R07.9 Chest pain, unspecified; F14.10 Cocaine abuse, uncomplicated; F17.200 Nicotine dependence, unspecified, uncomplicated
CPT/HCPCS: 36415; 71010; 80048; 80178; 80307; 81001; 82550; 82553; 84484; 85025; 85379; 93005; 93010; 96374; 96375; 99285; G0480; J2270; J2405; 80320

== ENCOUNTER 2017-02-18 19:40 | Emergency (ER) | payer OTHER ==
[2017-02-18 21:40] LABS: Basophils % (Auto) 0.5 % (0.0-1.8); Eosinophils % (Auto) 2.1 % (0.0-4.3); Hematocrit 36.5 % (35.5-45.6); Hemoglobin 12.2 gm/dl (11.8-15.2); Mean Corpuscular HGB Conc 33 % (32-34); Mean Corpuscular Hemoglobin 30 pg (28-32); Mean Corpuscular Volume 91 fl (84-94); Platelet Count 259 K/mm3 (140-440); Red Blood Count 4.04 M/mm3 (3.65-5.03); Red Cell Distribution Width 13.4 % (13.2-15.2); White Blood Count 5.5 K/mm3 (4.5-11.0)
[2017-02-18 21:43] LABS: Anion Gap 13 mmol/L; Blood Urea Nitrogen 24 mg/dL (9-20); Calcium 8.8 mg/dL (8.4-10.2); Carbon Dioxide 27 mmol/L (22-30); Chloride 101.8 mmol/L (98-107); Glucose 86 mg/dL (75-100); Potassium 4.2 mmol/L (3.6-5.0); Sodium 138 mmol/L (137-145)
--- NOTE | 2017-02-19 02:57 | Emergency Department Report ---
ED Psych HPI - General Chief Complaint: Psych Stated Complaint: "THOUGHTS OF HURTING MYSELF AND OTHERS" Time Seen by Provider: 02/19/17 01:47 Source: patient Mode of arrival: Ambulatory - History of Present Illness Initial Comments: 41 -year-old male with past medical history of substance abuse, suicidal ideation, rhabdomyolysis, and bipolar disorder. He presents here with complaints of having suicidal and homicidal ideations. This problem has been going on for the past 2 days. Patient says if any very depressed for the past 2 days. Whenever he gets depressed he goes out and abuses illicit drugs. He is also hearing voices, these voices are telling him to kill himself and kill other people around him. Patient says his appetite has increased., he has some insomnia. No nausea vomiting or diarrhea, no fever. Patient has been noncompliant on his psych medications for a long time now. MD Complaint: suicidal ideation, feels depressed -: Gradual, days(s) (2) Associated Psychiatric Symptoms: depression, suicidal ideation, homicidal ideation, auditory hallucinations (voices telling him to kill himself and other people around him) History of same: Yes Improves With: none Worsens With: none Context: recent drug abuse, not taking psychiatric (lithium and Zoloft), significant life stressor Associated Symptoms: insomnia. denies: headache, nausea, vomiting, syncope Treatments Prior to Arrival: none If Self Harm: admits thoughts of, has plan, other (patient also has homicidal ideations) - Related Data Previous Rx's Medication Instructions Recorded Last Taken Type [place] Carbonate [Eskalith] 300 mg PO BID #60 capsule 01/19/17 Unknown Rx Allergies Allergy/AdvReac Type Severity Reaction Status Date / Time No Known Allergies Allergy Verified 01/15/17 00:38 ED Review of Systems ROS: Stated complaint: "THOUGHTS OF HURTING MYSELF AND OTHERS" Other details as noted in HPI Comment: All other systems reviewed and negative Constitutional: denies: diaphoresis, fever, malaise, weakness, other Eyes: denies: eye pain, eye discharge, vision change ENT: denies: ear pain, throat pain, dental pain, hearing loss Respiratory: denies: orthopnea, shortness of breath, SOB with exertion, SOB at rest Cardiovascular: denies: chest pain, palpitations, dyspnea on exertion, edema, syncope, paroxysmal nocturnal dyspnea Endocrine: no symptoms reported Gastrointestinal: denies: nausea, vomiting, diarrhea, constipation Genitourinary: denies: dysuria, frequency, hematuria Neurological: denies: headache, weakness, numbness, paresthesias, confusion Psychiatric: depression, auditory hallucinations, homicidal thoughts, suicidal thoughts ED Past Medical Hx - Past Medical History Hx Congestive Heart Failure: No Hx Diabetes: No Hx Liver Disease: Yes (Hep C.) Hx Psychiatric Treatment: Yes (BIPOLAR) Hx Asthma: No Hx COPD: No Hx HIV: No - Surgical History Additional Surgical History: hernia repair - Social History Smoking Status: Current Every Day Smoker Substance Use Type: Alcohol, Cocaine - Medications Home Medications: Home Medications Medication Instructions Recorded Confirmed Last Taken Type [place] Carbonate [Eskalith] 300 mg PO BID #60 capsule 01/19/17 02/19/17 Unknown Rx ED Physical Exam - General Limitations: No Limitations General appearance: in distress (mild to moderate) - Head Head exam: Present: atraumatic, normocephalic, normal inspection - Eye Eye exam: Present: normal appearance, PERRL, EOMI. Absent: scleral icterus, conjunctival injection, nystagmus Pupils: Present: normal accommodation - ENT ENT exam: Present: normal exam, normal orophraynx, mucous membranes moist - Neck Neck exam: Present: normal inspection, full ROM. Absent: tenderness, lymphadenopathy - Respiratory Respiratory exam: Present: normal lung sounds bilaterally. Absent: respiratory distress, wheezes, rales, rhonchi, chest wall tenderness, accessory muscle use - Cardiovascular Cardiovascular Exam: Present: regular rate, normal rhythm, normal heart sounds. Absent: systolic murmur, diastolic murmur - GI/Abdominal GI/Abdominal exam: Present: soft, normal bowel sounds. Absent: distended, tenderness, guarding, hyperactive bowel sounds, hypoactive bowel sounds, organomegaly - Rectal Rectal exam: Present: deferred - Extremities Exam Extremities exam: Present: normal inspection, normal capillary refill. Absent: full ROM, pedal edema - Back Exam Back exam: Present: normal inspection, full ROM. Absent: CVA tenderness (L) - Neurological Exam Neurological exam: Present: alert, oriented X3, CN II-XII intact - Psychiatric Psychiatric exam: Present: depressed, homicidal ideation, suicidal ideation ED Course Vital Signs 02/18/17 02/19/17 20:59 01:38 Temperature 97.7 F Pulse Rate 89 Respiratory 16 18 Rate Blood Pressure 115/76 O2 Sat by Pulse 99 Oximetry ED Medical Decision Making - Lab Data Result diagrams: 02/18/17 21:13 02/19/17 03:24 Critical Care Time: No Critical care attestation.: If time is entered above; I have spent that time in minutes in the direct care of this critically ill patient, excluding procedure time. ED Disposition Clinical Impression: Suicidal ideations, Homicidal ideations Disposition: [id number]/TX-65 PSY HOSP/PSY UNIT Is pt being admited?: No Does the pt Need Aspirin: No Condition: Stable Referrals: PRIMARY CARE, [Primary Care Provider] - 3-5 Days Time of Disposition: 06:38
[2017-02-19 04:04] LABS: Alanine Aminotransferase 12 units/L (7-56); Albumin 3.9 g/dL (3.9-5); Albumin/Globulin Ratio 1.5 %; Alkaline Phosphatase 60 units/L (35-129); Anion Gap 13 mmol/L; BUN/Creatinine Ratio 24.44; Blood Urea Nitrogen 22 mg/dL (9-20); Calcium 8.7 mg/dL (8.4-10.2); Carbon Dioxide 27 mmol/L (22-30); Chloride 101.1 mmol/L (98-107); Glucose 87 mg/dL (75-100); Lithium 0.1 mmol/L (0.0-1.2); Potassium 4.4 mmol/L (3.6-5.0); Sodium 137 mmol/L (137-145); Total Protein 6.5 g/dL (6.3-8.2)
[2017-02-19 04:08] LABS: Salicylate < 0.3 mg/dL (2.8-20.0)
[2017-02-19 04:11] LABS: Urine Drugs of Abuse Note Disclamer
[2017-02-19 04:28] LABS: Bilirubin,Urine NEG (Negative); Blood,Urine NEG (Negative); Ketones,Urine NEG (Negative); Leukocyte Esterase,Urine NEG (Negative); Mucus,Urine 3+ /HPF; Nitrite,Urine NEG (Negative); Protein,Urine <15 mg/dL mg/dL (Negative); Urobilinogen,Urine < 2.0 mg/dL (<2.0)
--- NOTE | 2017-02-20 16:25 | Consultation ---
History of Present Illness - Reason for Consult Consult date: 02/20/17 Reason for consult: Mental Health Evalution Requesting physician: NATHAN ACE - Chief Complaint Chief complaint: "It's the cocaine" - History of Present Psychiatric Illness 41 -year-old male with past medical history of substance abuse, suicidal ideation, and bipolar disorder. This patient is known to me. Today patient is calm and cooperative during the assessment. He stated that he relapsed on cocaine and was having suicidal thoughts. He denies having a plan to commit suicide. He stated that he has to take rehab more serious so he can stay off the cocaine. He stated that he want to be a resident of [facility], a local detention for addictions. He stated that his mood has been declining for several days and it got worse after using cocaine. When asked about coping skills, he denies having any. He would not confirm or deny SI's, but denies HI' s. He denies AVH's. He stated that he haven't slept well lately, because he was using cocaine everyday. He denies excessive alcohol consumption (etoh). He stated that he would like to stay "clean." Medications and Allergies Allergies Allergy/AdvReac Type Severity Reaction Status Date / Time No Known Allergies Allergy Verified 01/15/17 00:38 Home Medications Medication Instructions Recorded Confirmed Last Taken Type [place] Carbonate [Eskalith] 300 mg PO BID #60 capsule 01/19/17 02/19/17 Unknown Rx Past psychiatric history - Past Medical History Past Medical History: other (Hep C) Past Surgical History: No surgical history - past Psychiatric treatment and history Psych: Bipolar psychiatric treatment history: Multiple inpatient settings. Denies a fam psy hx. - Social History Social history: other (homeless) Mental Status Exam - Vital signs Last Vital Signs Temp 98.1 F 02/19/17 07:40 Pulse 46 L 02/19/17 07:18 Resp 16 02/19/17 08:41 BP 108/78 02/19/17 07:40 Pulse Ox 99 02/19/17 07:40 - Exam Narrative exam: MSE: Appearance: calm, cooperative Behavior: regular eye contact Speech: regular rate and tone Mood: "I feel down" Affect: labile Thought Process: circumstantial Thought Content: denies HI's and AVH's, passive SI's Motor Activity: ambulatory Cognition: A/O x3 Insight: limited Judgment: limited Results Result Diagrams: 02/18/17 21:13 02/19/17 03:24 All other labs normal. Assessment and Plan Assessment and plan: Impression: Historical Dx: Bipolar DO. Unspecified Mood DO. Substance Use Do ( cocaine). Today patient is calm and cooperative during the assessment. Passive SI's. DDx: R/O MDD, Substance Induced Mood DO Recommendation/Plan: Continue 1013. Start [place] 300 mg PO BID for mood and Benadryl 25 mg PO HS PRN for sleep. If patient is here 5 days, a lithium level will be ordered. Discussed coping skill with patient.
[2017-02-20] MEDS ORDERED: BENADRYL PO PRN (16:34)
[2017-02-20] MEDS: LITHOBID ER PO SCH (22:03)
[2017-02-21] MEDS: LITHOBID ER PO SCH ×2 (13:27→22:27)
--- NOTE | 2017-02-21 13:57 | Progress Note ---
Subjective - Reason for Consult Consult date: 02/21/17 Reason for consult: Psychiatry Follow-up - Chief Complaint Chief complaint: "Hello" 41 -year-old male with past medical history of substance abuse, suicidal ideation, and bipolar disorder. This patient is known to me. Today patient is calm and cooperative during the assessment. He stated that he must not give the "crack man" his money when he gets paid. He stated that he need to make better decisions in life. He stated once discharged he will be compliant with his medication and seek outpatient rehab services. He could not confirm or deny SI' s. He denies HI's and AVH's. He stated that he slept "well" last night. He denies any side effects of his medication. Mental Status Exam - Vital signs Last Vital Signs Temp 98.7 F 02/21/17 05:35 Pulse 65 02/21/17 05:35 Resp 16 02/21/17 05:35 BP 122/58 02/21/17 05:35 Pulse Ox 98 02/21/17 05:35 - Exam Narrative exam: MSE: Appearance: calm, cooperative Behavior: regular eye contact Speech: regular rate and tone Mood: "so so today" Affect: labile Thought Process: circumstantial Thought Content: denies HI's and AVH's, passive SI's Motor Activity: ambulatory Cognition: A/O x3 Insight: variable Judgment: variable Assessment and Plan Impression: Historical Dx: Bipolar DO. Unspecified Mood DO. Substance Use Do ( cocaine). Today patient is calm and cooperative during the assessment. Passive SI's. DDx: R/O MDD, Substance Induced Mood DO Recommendation/Plan: Evaluate 1013 in 24 hours to determine proper dispo. Continue [place] 300 mg PO BID for mood and Benadryl 25 mg PO HS PRN for sleep. If patient is here 5 days, a lithium level will be ordered. Discussed coping skill with patient.
[2017-02-22 08:59] VITALS: BP 119/79
== END 2017-02-22 08:58 ==
LOC: EEVIPCON 19:40 → ED 19:40
DX: R45.851 Suicidal ideations (principal); R45.850 Homicidal ideations; R44.0 Auditory hallucinations; F14.10 Cocaine abuse, uncomplicated; F17.200 Nicotine dependence, unspecified, uncomplicated
CPT/HCPCS: 36415; 80048; 80053; 80178; 80307; 81001; 85025; 99285; G0480; 80320

== ENCOUNTER 2017-02-24 20:45 | Emergency (ER) | payer SELFPAY ==
[2017-02-24 21:35] LABS: Urine Drugs of Abuse Note Disclamer
[2017-02-24 21:48] LABS: Anion Gap 17 mmol/L; BUN/Creatinine Ratio 21; Basophils % (Auto) 0.6 % (0.0-1.8); Blood Urea Nitrogen 21 mg/dL (9-20); Calcium 9.3 mg/dL (8.4-10.2); Carbon Dioxide 27 mmol/L (22-30); Chloride 98.8 mmol/L (98-107); Eosinophils % (Auto) 0.8 % (0.0-4.3); Glucose 103 mg/dL (75-100); Hematocrit 39.6 % (35.5-45.6); Hemoglobin 13.2 gm/dl (11.8-15.2); Mean Corpuscular HGB Conc 33 % (32-34); Mean Corpuscular Hemoglobin 30 pg (28-32); Mean Corpuscular Volume 90 fl (84-94); Platelet Count 262 K/mm3 (140-440); Potassium 4.7 mmol/L (3.6-5.0); Red Cell Distribution Width 13.4 % (13.2-15.2); Sodium 138 mmol/L (137-145); White Blood Count 5.9 K/mm3 (4.5-11.0)
[2017-02-24 21:55] LABS: Bilirubin,Urine NEG (Negative); Blood,Urine NEG (Negative); Ketones,Urine NEG (Negative); Leukocyte Esterase,Urine NEG (Negative); Mucus,Urine FEW /HPF; Nitrite,Urine NEG (Negative); Protein,Urine <15 mg/dL mg/dL (Negative); Urobilinogen,Urine < 2.0 mg/dL (<2.0); WBC,Urine < 1.0 /HPF (0.0-6.0)
[2017-02-25] MEDS ORDERED: ZOFRAN ODT PO PRN (11:52)
[2017-02-25] MEDS ORDERED: ATIVAN IM PRN (11:52)
[2017-02-25] MEDS ORDERED: HALDOL IM PRN (11:52)
[2017-02-25] MEDS ORDERED: TYLENOL PO PRN (11:52)
--- NOTE | 2017-02-25 11:54 | Emergency Department Report ---
ED Psych HPI - General Chief Complaint: Psych Stated Complaint: MH/SUICIDAL Time Seen by Provider: 02/25/17 11:45 Source: patient, RN notes reviewed, old records reviewed Mode of arrival: Ambulatory Limitations: No Limitations - History of Present Illness Initial Comments: This is a 41-year-old male. The patient is previously unknown to this provider. He presented to the ER with a history of schizophrenia, indicating his medicines are not working, audio hallucinations, and feeling suicidal. His symptoms have since resolved. He has no complaints at this time. He does not have access to guns or firearms, he reports he has not attempted to overdose on anything. MD Complaint: suicidal ideation -: Gradual Associated Psychiatric Symptoms: suicidal ideation, auditory hallucinations History of same: Yes Quality: resolved prior to arrival Improves With: none Worsens With: none Associated Symptoms: denies other symptoms If Self Harm: admits thoughts of - Related Data Home Medications Medication Instructions Recorded Confirmed Last Taken Sertraline HCl [Zoloft] 50 mg PO QDAY 02/25/17 02/25/17 Unknown risperiDONE [RisperDAL] 1 mg PO Q12HR 02/25/17 02/25/17 Unknown Previous Rx's Medication Instructions Recorded Last Taken Type [place] Carbonate [Eskalith] 300 mg PO BID #60 capsule 01/19/17 Unknown Rx Allergies Allergy/AdvReac Type Severity Reaction Status Date / Time No Known Allergies Allergy Verified 02/24/17 20:58 ED Review of Systems ROS: Stated complaint: MH/SUICIDAL Other details as noted in HPI Constitutional: denies: fever Eyes: denies: eye discharge ENT: denies: epistaxis Respiratory: denies: cough Cardiovascular: denies: chest pain Gastrointestinal: denies: abdominal pain Musculoskeletal: denies: back pain Skin: denies: lesions Neurological: denies: abnormal gait Psychiatric: suicidal thoughts ED Past Medical Hx - Past Medical History Hx Congestive Heart Failure: No Hx Diabetes: No Hx Liver Disease: Yes (Hep C.) Hx Psychiatric Treatment: Yes (BIPOLAR, Schizophrenia) Hx Asthma: No Hx COPD: No Hx HIV: No - Surgical History Past Surgical History?: Yes Additional Surgical History: hernia repair - Social History Smoking Status: Current Every Day Smoker Substance Use Type: Cocaine - Medications Home Medications: Home Medications Medication Instructions Recorded Confirmed Last Taken Type [place] Carbonate [Eskalith] 300 mg PO BID #60 capsule 01/19/17 02/25/17 Unknown Rx Sertraline HCl [Zoloft] 50 mg PO QDAY 02/25/17 02/25/17 Unknown History risperiDONE [RisperDAL] 1 mg PO Q12HR 02/25/17 02/25/17 Unknown History ED Physical Exam - General Limitations: No Limitations General appearance: alert, in no apparent distress - Head Head exam: Present: atraumatic, normocephalic - Eye Eye exam: Present: normal appearance, EOMI. Absent: nystagmus - ENT ENT exam: Present: normal exam, normal orophraynx, mucous membranes moist, normal external ear exam - Neck Neck exam: Present: normal inspection, full ROM. Absent: tenderness, meningismus - Respiratory Respiratory exam: Present: normal lung sounds bilaterally. Absent: respiratory distress, wheezes, rales, rhonchi, stridor, chest wall tenderness, accessory muscle use, decreased breath sounds, prolonged expiratory - Cardiovascular Cardiovascular Exam: Present: regular rate, normal rhythm, normal heart sounds. Absent: bradycardia, tachycardia, irregular rhythm, systolic murmur, diastolic murmur, rubs, gallop - GI/Abdominal GI/Abdominal exam: Present: soft, normal bowel sounds. Absent: distended, tenderness, guarding, rebound, rigid, pulsatile mass - Rectal Rectal exam: Present: deferred - Extremities Exam Extremities exam: Present: normal inspection, full ROM, normal capillary refill. Absent: pedal edema, joint swelling, calf tenderness - Back Exam Back exam: Present: normal inspection, full ROM. Absent: tenderness, CVA tenderness (R), CVA tenderness (L), muscle spasm, paraspinal tenderness, vertebral tenderness - Neurological Exam Neurological exam: Present: alert, oriented X3, normal gait, other (Extraocular movements intact. Tongue midline. No facial droop. Facial sensation intact to light touch in the V1, V2, V3 distribution bilaterally. 5 and 5 strength in 4 extremities.. Sensation is intact to light touch in 4 extremities.). Absent : motor sensory deficit - Psychiatric Psychiatric exam: Present: anxious - Skin Skin exam: Present: warm, dry, intact, normal color. Absent: rash ED Course Vital Signs 02/24/17 02/25/17 02/25/17 20:58 02:19 12:37 Temperature 98.9 F 97.6 F Pulse Rate 79 56 L Respiratory 18 16 Rate Blood Pressure 128/82 120/68 O2 Sat by Pulse 98 100 Oximetry ED Medical Decision Making - Lab Data Result diagrams: 02/24/17 21:15 02/24/17 21:15 Vital Signs 02/24/17 02/25/17 02/25/17 20:58 02:19 12:37 Temperature 98.9 F 97.6 F Pulse Rate 79 56 L Respiratory 18 16 Rate Blood Pressure 128/82 120/68 O2 Sat by Pulse 98 100 Oximetry Lab Results 02/24/17 02/24/17 02/24/17 Range/Units 19:10 19:10 21:15 WBC (4.5-11.0) K/mm3 RBC (3.65-5.03) M/mm3 Hgb (11.8-15.2) gm/dl Hct (35.5-45.6) % MCV (84-94) fl MCH (28-32) pg MCHC (32-34) % RDW (13.2-15.2) % Plt Count (140-440) K/mm3 Lymph % (Auto) (13.4-35.0) % [place] % (Auto) (0.0-7.3) % Eos % (Auto) (0.0-4.3) % Baso % (Auto) (0.0-1.8) % Lymph # (1.2-5.4) K/mm3 [place] # (0.0-0.8) K/mm3 Eos # (0.0-0.4) K/mm3 Baso # (0.0-0.1) K/mm3 Seg Neutrophils % (40.0-70.0) % Seg Neutrophils # (1.8-7.7) K/mm3 Sodium 138 (137-145) mmol/L Potassium 4.7 (3.6-5.0) mmol/L Chloride 98.8 (98-107) mmol/L Carbon Dioxide 27 (22-30) mmol/L Anion Gap 17 mmol/L BUN 21 H (9-20) mg/dL Creatinine 1.0 (0.8-1.5) mg/dL Estimated GFR > 60 ml/min BUN/Creatinine Ratio 21 % Glucose 103 H (75-100) mg/dL Calcium 9.3 (8.4-10.2) mg/dL Total Creatine Kinase (55-170) units/L Urine Color Yellow (Yellow) Urine Turbidity Clear (Clear) Urine pH 7.0 (5.0-7.0) Ur Specific [place] 1.021 (1.003-1.030) Urine Protein <15 mg/dl (Negative) mg/dL Urine Glucose (UA) Neg (Negative) mg/dL Urine Ketones Neg (Negative) mg/dL Urine Blood Neg (Negative) Urine Nitrite Neg (Negative) Urine Bilirubin Neg (Negative) Urine Urobilinogen < 2.0 (<2.0) mg/dL Ur Leukocyte Esterase Neg (Negative) Urine WBC (Auto) < 1.0 (0.0-6.0) /HPF Urine RBC (Auto) 0.0 (0.0-6.0) /HPF Urine Mucus Few /HPF Salicylates (2.8-20.0) mg/dL Urine Opiates Screen Presumptive negative Urine Methadone Screen Presumptive negative Acetaminophen (10.0-30.0) ug/mL Ur Barbiturates Screen Presumptive negative Ur Phencyclidine Scrn Presumptive negative Ur Amphetamines Screen Presumptive negative U Benzodiazepines Scrn Presumptive negative [place] (0.0-1.2) mmol/L Urine Cocaine Screen Presumptive negative U Marijuana (THC) Screen Presumptive negative Drugs of Abuse Note Disclamer Plasma/Serum Alcohol (0-0.07) gm% 02/24/17 02/24/17 02/25/17 Range/Units 21:15 21:15 11:59 WBC 5.9 (4.5-11.0) K/mm3 RBC 4.40 (3.65-5.03) M/mm3 Hgb 13.2 (11.8-15.2) gm/dl Hct 39.6 (35.5-45.6) % MCV 90 (84-94) fl MCH 30 (28-32) pg MCHC 33 (32-34) % RDW 13.4 (13.2-15.2) % Plt Count 262 (140-440) K/mm3 Lymph % (Auto) 29.7 (13.4-35.0) % [place] % (Auto) 8.3 H (0.0-7.3) % Eos % (Auto) 0.8 (0.0-4.3) % Baso % (Auto) 0.6 (0.0-1.8) % Lymph # 1.8 (1.2-5.4) K/mm3 [place] # 0.5 (0.0-0.8) K/mm3 Eos # 0.0 (0.0-0.4) K/mm3 Baso # 0.0 (0.0-0.1) K/mm3 Seg Neutrophils % 60.6 (40.0-70.0) % Seg Neutrophils # 3.6 (1.8-7.7) K/mm3 Sodium (137-145) mmol/L Potassium (3.6-5.0) mmol/L Chloride (98-107) mmol/L Carbon Dioxide (22-30) mmol/L Anion Gap mmol/L BUN (9-20) mg/dL Creatinine (0.8-1.5) mg/dL Estimated GFR ml/min BUN/Creatinine Ratio % Glucose (75-100) mg/dL Calcium (8.4-10.2) mg/dL Total Creatine Kinase 273 H (55-170) units/L Urine Color (Yellow) Urine Turbidity (Clear) Urine pH (5.0-7.0) Ur Specific [place] (1.003-1.030) Urine Protein (Negative) mg/dL Urine Glucose (UA) (Negative) mg/dL Urine Ketones (Negative) mg/dL Urine Blood (Negative) Urine Nitrite (Negative) Urine Bilirubin (Negative) Urine Urobilinogen (<2.0) mg/dL Ur Leukocyte Esterase (Negative) Urine WBC (Auto) (0.0-6.0) /HPF Urine RBC (Auto) (0.0-6.0) /HPF Urine Mucus /HPF Salicylates (2.8-20.0) mg/dL Urine Opiates Screen Urine Methadone Screen Acetaminophen (10.0-30.0) ug/mL Ur Barbiturates Screen Ur Phencyclidine Scrn Ur Amphetamines Screen U Benzodiazepines Scrn [place] (0.0-1.2) mmol/L Urine Cocaine Screen U Marijuana (THC) Screen Drugs of Abuse Note Plasma/Serum Alcohol < 0.01 (0-0.07) gm% 02/25/17 02/25/17 Range/Units 11:59 11:59 WBC (4.5-11.0) K/mm3 RBC (3.65-5.03) M/mm3 Hgb (11.8-15.2) gm/dl Hct (35.5-45.6) % MCV (84-94) fl MCH (28-32) pg MCHC (32-34) % RDW (13.2-15.2) % Plt Count (140-440) K/mm3 Lymph % (Auto) (13.4-35.0) % [place] % (Auto) (0.0-7.3) % Eos % (Auto) (0.0-4.3) % Baso % (Auto) (0.0-1.8) % Lymph # (1.2-5.4) K/mm3 [place] # (0.0-0.8) K/mm3 Eos # (0.0-0.4) K/mm3 Baso # (0.0-0.1) K/mm3 Seg Neutrophils % (40.0-70.0) % Seg Neutrophils # (1.8-7.7) K/mm3 Sodium (137-145) mmol/L Potassium (3.6-5.0) mmol/L Chloride (98-107) mmol/L Carbon Dioxide (22-30) mmol/L Anion Gap mmol/L BUN (9-20) mg/dL Creatinine (0.8-1.5) mg/dL Estimated GFR ml/min BUN/Creatinine Ratio % Glucose (75-100) mg/dL Calcium (8.4-10.2) mg/dL Total Creatine Kinase (55-170) units/L Urine Color (Yellow) Urine Turbidity (Clear) Urine pH (5.0-7.0) Ur Specific [place] (1.003-1.030) Urine Protein (Negative) mg/dL Urine Glucose (UA) (Negative) mg/dL Urine Ketones (Negative) mg/dL Urine Blood (Negative) Urine Nitrite (Negative) Urine Bilirubin (Negative) Urine Urobilinogen (<2.0) mg/dL Ur Leukocyte Esterase (Negative) Urine WBC (Auto) (0.0-6.0) /HPF Urine RBC (Auto) (0.0-6.0) /HPF Urine Mucus /HPF Salicylates < 0.3 L (2.8-20.0) mg/dL Urine Opiates Screen Urine Methadone Screen Acetaminophen < 15.0 (10.0-30.0) ug/mL Ur Barbiturates Screen Ur Phencyclidine Scrn Ur Amphetamines Screen U Benzodiazepines Scrn [place] 0.1 (0.0-1.2) mmol/L Urine Cocaine Screen U Marijuana (THC) Screen Drugs of Abuse Note Plasma/Serum Alcohol (0-0.07) gm% - Medical Decision Making Differential diagnosis: Mood disorder, suicidality, medical clearance for psychiatric placement Assessment and plan: 41-year-old male with resolved suicidality, extensive psychiatric history, no immediate medical complaints at this time, GCS of 15, NIH score of 0, physical exam unremarkable. Given initial triage endorsement of suicidality, patient is placed on a 1013, laboratory studies are unremarkable , patient is ordered for as any medications, and a psychiatric consult will be obtained to arrange a safe plan and disposition. At this point in time, there does not appear to be any immediate medical contraindication indication to psychiatric admission/evaluation and consultation at this time. Critical care attestation.: If time is entered above; I have spent that time in minutes in the direct care of this critically ill patient, excluding procedure time. ED Disposition Clinical Impression: Suicidal ideations Disposition: DC/TX-65 PSY HOSP/PSY UNIT Is pt being admited?: No Does the pt Need Aspirin: No Condition: Stable Referrals: PRIMARY CARE, [Primary Care Provider] - 3-5 Days
[2017-02-25 12:39] LABS: Lithium 0.1 mmol/L (0.0-1.2)
[2017-02-25 12:40] LABS: Salicylate < 0.3 mg/dL (2.8-20.0)
[2017-02-25 18:47] VITALS: BP 124/78
== END 2017-02-26 07:03 ==
LOC: ED 20:45
DX: R45.851 Suicidal ideations (principal); F14.10 Cocaine abuse, uncomplicated; F17.200 Nicotine dependence, unspecified, uncomplicated
CPT/HCPCS: 36415; 80048; 80178; 80307; 81001; 82550; 85025; 99285; G0480; J2060; 80320

== ENCOUNTER 2018-07-24 10:41 | Emergency (ER) | payer SELFPAY ==
[2018-07-24 11:18] LABS: Basophils % (Auto) 0.5 % (0.0-1.8); Eosinophils # (Auto) 0.1 K/mm3 (0.0-0.4); Eosinophils % (Auto) 1.8 % (0.0-4.3); Hematocrit 40.5 % (35.5-45.6); Hemoglobin 13.7 gm/dl (11.8-15.2); Lymphocytes # (Auto) 1.5 K/mm3 (1.2-5.4); Lymphocytes % (Auto) 27.9 % (13.4-35.0); Mean Corpuscular HGB Conc 34 % (32-34); Mean Corpuscular Volume 89 fl (84-94); Monocytes # (Auto) 0.4 K/mm3 (0.0-0.8); Monocytes % (Auto) 7.4 % (0.0-7.3); Platelet Count 321 K/mm3 (140-440); Red Blood Count 4.53 M/mm3 (3.65-5.03); Red Cell Distribution Width 12.9 % (13.2-15.2)
[2018-07-24 11:38] LABS: BUN/Creatinine Ratio 29; Blood Urea Nitrogen 23 mg/dL (9-20); Calcium 8.7 mg/dL (8.4-10.2); Hemolysis Index 12
[2018-07-24 12:13] LABS: Bilirubin,Urine NEG (Negative); Blood,Urine NEG (Negative); Color,Urine Yellow (Yellow); Mucus,Urine 3+ /HPF; Protein,Urine <15 mg/dL mg/dL (Negative); RBC,Urine < 1.0 /HPF (0.0-6.0)
--- NOTE | 2018-07-24 12:15 | Emergency Department Report ---
ED General Adult HPI - General Chief complaint: Psych Stated complaint: SUICIDAL IDEATION Time Seen by Provider: 07/24/18 11:35 Source: patient Mode of arrival: Ambulatory Limitations: No Limitations - History of Present Illness Initial comments: Patient presents worse post-chief complaint of homicidal or suicidal ideations. Patient states she has a history of bipolar and is currently not on medications. Patient states that he is paranoid and is also hearing voices. 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 and that's when his symptoms became worse -: Gradual Severity scale (0 -10): 0 Improves with: none Worsens with: none Associated Symptoms: denies other symptoms Treatments Prior to Arrival: none - Related Data Home Medications Medication Instructions Recorded Confirmed Last Taken Sertraline HCl [Zoloft] 50 mg PO QDAY 02/25/17 02/25/17 Unknown risperiDONE [RisperDAL] 1 mg PO Q12HR 02/25/17 02/25/17 Unknown Previous Rx's Medication Instructions Recorded Last Taken Type [place] Carbonate [Eskalith] 300 mg PO BID #60 capsule 01/19/17 Unknown Rx Allergies Allergy/AdvReac Type Severity Reaction Status Date / Time No Known Allergies Allergy Verified 02/24/17 20:58 ED Review of Systems ROS: Stated complaint: SUICIDAL IDEATION Other details as noted in HPI Constitutional: denies: chills, fever Eyes: denies: eye pain, eye discharge, vision change ENT: denies: ear pain, throat pain Respiratory: denies: cough, shortness of breath, wheezing Cardiovascular: denies: chest pain, palpitations Endocrine: no symptoms reported Gastrointestinal: denies: abdominal pain, nausea, diarrhea Genitourinary: denies: urgency, dysuria Musculoskeletal: denies: back pain, joint swelling, arthralgia Skin: denies: rash, lesions Neurological: denies: headache, weakness, paresthesias Psychiatric: homicidal thoughts, suicidal thoughts. denies: anxiety, depression Hematological/Lymphatic: denies: easy bleeding, easy bruising ED Past Medical Hx - Past Medical History Previous Medical History?: Yes Hx Congestive Heart Failure: No Hx Diabetes: No Hx Liver Disease: Yes (Hep C.) Hx Psychiatric Treatment: Yes (BIPOLAR, Schizophrenia) Hx Asthma: No Hx COPD: No Hx HIV: No - Surgical History Past Surgical History?: Yes Additional Surgical History: hernia repair - Social History Smoking Status: Current Every Day Smoker Substance Use Type: Alcohol, Cocaine - Medications Home Medications: Home Medications Medication Instructions Recorded Confirmed Last Taken Type [place] Carbonate [Eskalith] 300 mg PO BID #60 capsule 01/19/17 02/25/17 Unknown Rx Sertraline HCl [Zoloft] 50 mg PO QDAY 02/25/17 02/25/17 Unknown History risperiDONE [RisperDAL] 1 mg PO Q12HR 02/25/17 02/25/17 Unknown History ED Physical Exam - General Limitations: No Limitations General appearance: alert, in no apparent distress - Head Head exam: Present: atraumatic, normocephalic - Eye Eye exam: Present: normal appearance, PERRL, EOMI - ENT ENT exam: Present: mucous membranes moist - Neck Neck exam: Present: normal inspection - Respiratory Respiratory exam: Present: normal lung sounds bilaterally. Absent: respiratory distress, wheezes, rales - Cardiovascular Cardiovascular Exam: Present: regular rate, normal rhythm. Absent: systolic murmur, diastolic murmur, rubs, gallop - GI/Abdominal GI/Abdominal exam: Present: soft, normal bowel sounds. Absent: distended, tenderness - Rectal Rectal exam: Present: deferred - Extremities Exam Extremities exam: Present: normal inspection - Back Exam Back exam: Present: normal inspection - Neurological Exam Neurological exam: Present: alert, oriented X3, CN II-XII intact. Absent: motor sensory deficit - Psychiatric Psychiatric exam: Present: homicidal ideation, suicidal ideation, other (the patient is paranoid on exam with good insight and judgment) - Skin Skin exam: Present: warm, dry, intact, normal color. Absent: rash ED Course Vital Signs 07/24/18 07/24/18 10:48 13:23 Temperature 98.6 F 97.9 F Pulse Rate 88 83 Respiratory 18 18 Rate Blood Pressure 123/77 Blood Pressure 111/96 [Right] O2 Sat by Pulse 98 99 Oximetry ED Medical Decision Making - Lab Data Result diagrams: 07/24/18 11:09 07/24/18 11:09 Lab Results 07/24/18 07/24/18 07/24/18 Range/Units 10:00 10:00 11:09 WBC (4.5-11.0) K/mm3 RBC (3.65-5.03) M/mm3 Hgb (11.8-15.2) gm/dl Hct (35.5-45.6) % MCV (84-94) fl MCH (28-32) pg MCHC (32-34) % RDW (13.2-15.2) % Plt Count (140-440) K/mm3 Lymph % (Auto) (13.4-35.0) % [place] % (Auto) (0.0-7.3) % Eos % (Auto) (0.0-4.3) % Baso % (Auto) (0.0-1.8) % Lymph # (1.2-5.4) K/mm3 [place] # (0.0-0.8) K/mm3 Eos # (0.0-0.4) K/mm3 Baso # (0.0-0.1) K/mm3 Seg Neutrophils % (40.0-70.0) % Seg Neutrophils # (1.8-7.7) K/mm3 Sodium (137-145) mmol/L Potassium (3.6-5.0) mmol/L Chloride (98-107) mmol/L Carbon Dioxide (22-30) mmol/L Anion Gap mmol/L BUN (9-20) mg/dL Creatinine (0.8-1.5) mg/dL Estimated GFR ml/min BUN/Creatinine Ratio % Glucose (75-100) mg/dL Calcium (8.4-10.2) mg/dL Total Bilirubin (0.1-1.2) mg/dL Direct Bilirubin (0-0.2) mg/dL AST (5-40) units/L ALT (7-56) units/L Alkaline Phosphatase (35-129) units/L Total Protein (6.3-8.2) g/dL Albumin (3.9-5) g/dL Albumin/Globulin Ratio % Urine Color Yellow (Yellow) Urine Turbidity Clear (Clear) Urine pH 5.0 (5.0-7.0) Ur Specific [place] 1.027 (1.003-1.030) Urine Protein <15 mg/dl (Negative) mg/dL Urine Glucose (UA) Neg (Negative) mg/dL Urine Ketones 20 (Negative) mg/dL Urine Blood Neg (Negative) Urine Nitrite Neg (Negative) Urine Bilirubin Neg (Negative) Urine Urobilinogen 2.0 (<2.0) mg/dL Ur Leukocyte Esterase Neg (Negative) Urine WBC (Auto) 2.0 (0.0-6.0) /HPF Urine RBC (Auto) < 1.0 (0.0-6.0) /HPF Urine Mucus 3+ /HPF Salicylates < 0.3 L (2.8-20.0) mg/dL Urine Opiates Screen Presumptive negative Urine Methadone Screen Presumptive negative Acetaminophen (10.0-30.0) ug/mL Ur Barbiturates Screen Presumptive negative Ur Phencyclidine Scrn Presumptive negative Ur Amphetamines Screen Presumptive positive U Benzodiazepines Scrn Presumptive negative Urine Cocaine Screen Presumptive positive U Marijuana (THC) Screen Presumptive negative Drugs of Abuse Note Disclamer Plasma/Serum Alcohol (0-0.07) % 07/24/18 07/24/18 07/24/18 Range/Units 11:09 11:09 11:09 WBC (4.5-11.0) K/mm3 RBC (3.65-5.03) M/mm3 Hgb (11.8-15.2) gm/dl Hct (35.5-45.6) % MCV (84-94) fl MCH (28-32) pg MCHC (32-34) % RDW (13.2-15.2) % Plt Count (140-440) K/mm3 Lymph % (Auto) (13.4-35.0) % [place] % (Auto) (0.0-7.3) % Eos % (Auto) (0.0-4.3) % Baso % (Auto) (0.0-1.8) % Lymph # (1.2-5.4) K/mm3 [place] # (0.0-0.8) K/mm3 Eos # (0.0-0.4) K/mm3 Baso # (0.0-0.1) K/mm3 Seg Neutrophils % (40.0-70.0) % Seg Neutrophils # (1.8-7.7) K/mm3 Sodium 140 (137-145) mmol/L Potassium 3.2 L (3.6-5.0) mmol/L Chloride 101.0 (98-107) mmol/L Carbon Dioxide 29 (22-30) mmol/L Anion Gap 13 mmol/L BUN 23 H (9-20) mg/dL Creatinine 0.8 (0.8-1.5) mg/dL Estimated GFR > 60 ml/min BUN/Creatinine Ratio 29 % Glucose 102 H (75-100) mg/dL Calcium 8.7 (8.4-10.2) mg/dL Total Bilirubin (0.1-1.2) mg/dL Direct Bilirubin (0-0.2) mg/dL AST (5-40) units/L ALT (7-56) units/L Alkaline Phosphatase (35-129) units/L Total Protein (6.3-8.2) g/dL Albumin (3.9-5) g/dL Albumin/Globulin Ratio % Urine Color (Yellow) Urine Turbidity (Clear) Urine pH (5.0-7.0) Ur Specific [place] (1.003-1.030) Urine Protein (Negative) mg/dL Urine Glucose (UA) (Negative) mg/dL Urine Ketones (Negative) mg/dL Urine Blood (Negative) Urine Nitrite (Negative) Urine Bilirubin (Negative) Urine Urobilinogen (<2.0) mg/dL Ur Leukocyte Esterase (Negative) Urine WBC (Auto) (0.0-6.0) /HPF Urine RBC (Auto) (0.0-6.0) /HPF Urine Mucus /HPF Salicylates (2.8-20.0) mg/dL Urine Opiates Screen Urine Methadone Screen Acetaminophen < 5.0 L (10.0-30.0) ug/mL Ur Barbiturates Screen Ur Phencyclidine Scrn Ur Amphetamines Screen U Benzodiazepines Scrn Urine Cocaine Screen U Marijuana (THC) Screen Drugs of Abuse Note Plasma/Serum Alcohol < 0.01 (0-0.07) % 07/24/18 07/24/18 Range/Units 11:09 11:09 WBC 5.3 (4.5-11.0) K/mm3 RBC 4.53 (3.65-5.03) M/mm3 Hgb 13.7 (11.8-15.2) gm/dl Hct 40.5 (35.5-45.6) % MCV 89 (84-94) fl MCH 30 (28-32) pg MCHC 34 (32-34) % RDW 12.9 L (13.2-15.2) % Plt Count 321 (140-440) K/mm3 Lymph % (Auto) 27.9 (13.4-35.0) % [place] % (Auto) 7.4 H (0.0-7.3) % Eos % (Auto) 1.8 (0.0-4.3) % Baso % (Auto) 0.5 (0.0-1.8) % Lymph # 1.5 (1.2-5.4) K/mm3 [place] # 0.4 (0.0-0.8) K/mm3 Eos # 0.1 (0.0-0.4) K/mm3 Baso # 0.0 (0.0-0.1) K/mm3 Seg Neutrophils % 62.4 (40.0-70.0) % Seg Neutrophils # 3.3 (1.8-7.7) K/mm3 Sodium (137-145) mmol/L Potassium (3.6-5.0) mmol/L Chloride (98-107) mmol/L Carbon Dioxide (22-30) mmol/L Anion Gap mmol/L BUN (9-20) mg/dL Creatinine (0.8-1.5) mg/dL Estimated GFR ml/min BUN/Creatinine Ratio % Glucose (75-100) mg/dL Calcium (8.4-10.2) mg/dL Total Bilirubin 0.60 (0.1-1.2) mg/dL Direct Bilirubin < 0.2 (0-0.2) mg/dL AST 41 H (5-40) units/L ALT 27 (7-56) units/L Alkaline Phosphatase 69 (35-129) units/L Total Protein 7.3 (6.3-8.2) g/dL Albumin 4.2 (3.9-5) g/dL Albumin/Globulin Ratio 1.4 % Urine Color (Yellow) Urine Turbidity (Clear) Urine pH (5.0-7.0) Ur Specific [place] (1.003-1.030) Urine Protein (Negative) mg/dL Urine Glucose (UA) (Negative) mg/dL Urine Ketones (Negative) mg/dL Urine Blood (Negative) Urine Nitrite (Negative) Urine Bilirubin (Negative) Urine Urobilinogen (<2.0) mg/dL Ur Leukocyte Esterase (Negative) Urine WBC (Auto) (0.0-6.0) /HPF Urine RBC (Auto) (0.0-6.0) /HPF Urine Mucus /HPF Salicylates (2.8-20.0) mg/dL Urine Opiates Screen Urine Methadone Screen Acetaminophen (10.0-30.0) ug/mL Ur Barbiturates Screen Ur Phencyclidine Scrn Ur Amphetamines Screen U Benzodiazepines Scrn Urine Cocaine Screen U Marijuana (THC) Screen Drugs of Abuse Note Plasma/Serum Alcohol (0-0.07) % - Medical Decision Making 1013 applied Mental health evaluation done Awaiting psychiatric evaluation and placement Critical care attestation.: If time is entered above; I have spent that time in minutes in the direct care of this critically ill patient, excluding procedure time. ED Disposition Clinical Impression: Homicidal ideation, Suicidal ideation Disposition: DC/TX-65 PSY HOSP/PSY UNIT Is pt being admited?: No Does the pt Need Aspirin: No Condition: Stable Referrals: LOU FLORES MD [Primary Care Provider] - 3-5 Days
[2018-07-24 12:22] LABS: Benzodiazepines Screen,Urine PRESUMPTIVE NEGATIVE; Cannabinoid Screen,Urine PRESUMPTIVE NEGATIVE; Methadone Screen,Urine PRESUMPTIVE NEGATIVE; Opiate Screen,Urine PRESUMPTIVE NEGATIVE
[2018-07-24 12:34] LABS: Amphetamine Screen,Urine PRESUMPTIVE POSITIVE; Cocaine Screen,Urine PRESUMPTIVE POSITIVE
[2018-07-24 12:43] LABS: Alanine Aminotransferase 27 units/L (7-56); Albumin 4.2 g/dL (3.9-5)
[2018-07-24 12:44] LABS: Bilirubin,Direct < 0.2 mg/dL (0-0.2)
[2018-07-24] MEDS ORDERED: BENADRYL PO ONE ×2 (15:15→15:18)
[2018-07-24] MEDS ORDERED: PEPCID IV ONE ×2 (15:15→15:21)
--- NOTE | 2018-07-25 14:34 | Consultation ---
History of Present Illness - Reason for Consult Consult date: 07/25/18 Reason for consult: Initial Psychiatric Evaluation - Chief Complaint Chief complaint: " Thoughts of suicide" - History of Present Psychiatric Illness Patient is a 42 year old male that presents to the emergency room with suicidal ideations without a plan. Patient has a past psychiatric history of MDD and Bipolar Disorder. Today the patient is anxious and fidgety during the assessment. Mood is labile. 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 I need intermediate drug treatment." Patient thoughts are tangential. Responses are delayed. Provider is unable to follow patient's speech due to rambling. He appears to have grandiose and paranoid delusions. He later endorses auditory hallucinations, paranoid delusions, suicidal ideations, and homicidal ideations. Patient hasn't been compliant with medication since 2017. Current Psychiatric Medications: Patient denies. No medications. Past Psychiatric History: MDD (2015) and Bipolar(2016); Approximately 5 previous inpatient psychiatric hospitalizations ( [place], [facility], [facility] ); no outpatient psychiatrist; 4 previous suicide attempts ("overdosing on drug")- last attempt 07-23-18. Past Medication Trials: Risperdal (effective), Zoloft ( effective). History Drug/Substance Abuse: Methamphetamine, binge use- $600.00, sporadic-use, last use- 07/23/18, first use-"2015"; Crack Cocaine, sporadically, amount-varies, last use - 07/23/18, first use- "Age 16". UDS positive for amphetamines and cocaine. History of Trauma/Abuse: Patient denies sexual, physical, and mental abuse. Social History: 11th grade- highest level of education; no income; ; 1 daughter and 1 son; no pending legal issues. Family History of Psychiatric Illness/ Substance Abuse: Mother- Dementia and Schizophrenia. Medications and Allergies Allergies Allergy/AdvReac Type Severity Reaction Status Date / Time No Known Allergies Allergy Verified 02/24/17 20:58 Mental Status Exam - Vital signs Last Vital Signs Temp 98.5 F 07/25/18 13:40 Pulse 81 07/25/18 13:40 Resp 18 07/25/18 13:40 BP 133/74 07/25/18 13:40 Pulse Ox 100 07/25/18 13:40 - Exam Narrative exam: Mental Status Exam Appearance: calm, cooperative Behavior: regular eye contact; fidgety Speech: delayed and rapid at times Mood: "Frustrated." Affect: congruent to mood Thought Process: tangential, thought blocking Thought Content: + SI/HI's and AH's and delusions; Patient denies VH's Motor Activity: sitting up in the bed Cognition: A/O x3 Insight: poor Judgment: poor Results Result Diagrams: 07/24/18 11:09 07/24/18 11:09 All other labs normal. Assessment and Plan Assessment and plan: Impression: PPHX MDD and Bipolar Disorder. Psychosis Unspecified . Today the patient is anxious and fidgety during the assessment. Psychosis is overt. Mood is labile. UDS positive for amphetamines and cocaine. DDx: r/o schizoaffective disorder, bipolar type Recommendation/Plan: 1. Continue 1013. 2. Attempt to gain collateral. 3. Start Risperdal 1 mg po QHS psychosis/mood . Discussed possible metabolic side effects of Risperdal. Disposition: Patient referred to inpatient psychiatric services. Will staff with Dr. Ashly Do.
[2018-07-25] MEDS: RisperDAL PO SCH (21:41)
[2018-07-26] MEDS ORDERED: K-DUR PO ONE (04:13)
--- NOTE | 2018-07-26 12:57 | Progress Note ---
Subjective - Reason for Consult Consult date: 07/26/18 Reason for consult: Psychiatry Follow-up - Chief Complaint Chief complaint: "I have no reason to want to live" 42 year old male that presented tot ER for SI's. This patient is known to me. Today the patient is anxious during the assessment. He stated his life is not going well because he wasn't hired for a job he was interviewed for last week, He stated that he felt like killing himself while using recreational drugs. He stated that his life depended on him getting this job. Throughout the interview, the patient was fidgety. He stated that he is hearing "some type of voice" in his ears. He continue to endorse SI's without a suicide plan.He rate his depression 10/10, with 10 being the worse. He denies HI's and VH's. He denies any side effects of his medication. Mental Status Exam - Vital signs Last Vital Signs Temp 97.8 F 07/26/18 07:30 Pulse 81 07/26/18 07:30 Resp 16 07/26/18 12:30 BP 114/73 07/26/18 07:30 Pulse Ox 98 07/26/18 07:30 - Exam Narrative exam: MSE: Appearance: cooperative Behavior: regular eye contact Speech: regular rate and loud tone Mood: "anxious" Affect: congruent to mood Thought Process: circumstantial Thought Content: denies HI's and VH's Motor Activity: sitting up in the bed Cognition: A/O x3 Insight: variable to fair Judgment: poor Assessment and Plan Impression: Unspecified Psychosis. Substance Use DO (amphetamines/cocaine). Additional Dx's: MDD, Severe Type and Unspecified Anxiety DO. Today the patient is anxious during the assessment. The patient endorsed SI's. DDx: R/O Substance Induced Psyhcotic/Mood DO, R/O Bipolar DO Recommendation/Plan: Continue 1013.and Risperdal 1 mg PO HS for mood/psychosis. Start Remeron 15 mg PO HS for depression/anxiety and Buspar 7.5 mg Po BID for anxiety. Discussed possible metabolic side effects of Risperdal with the patient. Also, discussed possible suicidality/medication induced subhash with the patient reference Remeron. Dispo: The patient was referred to inpatient psyc services. Staffed with Dr Skinner.
[2018-07-26] MEDS: BUSPAR PO SCH ×2 (15:42→22:12)
[2018-07-26] MEDS ORDERED: ATIVAN PO PRN (22:04)
[2018-07-26] MEDS: REMERON PO SCH (22:12)
[2018-07-26] MEDS: RisperDAL PO SCH (22:12)
--- NOTE | 2018-07-27 09:01 | Progress Note ---
Subjective - Reason for Consult Consult date: 07/27/18 Reason for consult: Psychiatry Follow-up - Chief Complaint Chief complaint: "I feel bad" 42 year old male that presented tot ER for SI's. This patient is known to me. Today the patient is calm during the assessment. He stated nothing has changed about his mental health today. He continues to endorse SI's with a plan to overdose on pills. He did acknowledge getting more sleep last night. He denies HI's and AVH's. He denies any side effects of his medications. Mental Status Exam - Vital signs Last Vital Signs Temp 97.7 F 07/27/18 01:30 Pulse 57 L 07/27/18 01:30 Resp 16 07/27/18 01:30 BP 118/70 07/27/18 01:30 Pulse Ox 98 07/27/18 01:30 - Exam Narrative exam: MSE: Appearance: calm Behavior: regular eye contact Speech: regular rate and loud tone Mood: "okay" Affect: congruent to mood Thought Process: circumstantial Thought Content: denies HI's and AVH's Motor Activity: sitting up in the bed Cognition: A/O x3 Insight: vague Judgment: poor Assessment and Plan Impression: Unspecified Psychosis. Substance Use DO (amphetamines/cocaine). Additional Dx's: MDD, Severe Type and Unspecified Anxiety DO. Today the patient is calm during the assessment. The patient continue to endorse SI's. DDx: R/O Substance Induced Psyhcotic/Mood DO, R/O Bipolar DO Recommendation/Plan: Continue 1013, Risperdal 1 mg PO HS for mood/psychosis, Remeron 15 mg PO HS for depression/anxiety, and Buspar 7.5 mg PO BID for anxiety. Discussed possible metabolic side effects of Risperdal with the patient. Also, discussed possible suicidality/medication induced subhash with the patient reference Remeron. Dispo: The patient was referred to inpatient psyc services. Will staff with Dr Skinner.
[2018-07-27] MEDS: BUSPAR PO SCH ×2 (10:51→21:59)
[2018-07-27] MEDS: REMERON PO SCH (21:59)
[2018-07-27] MEDS: RisperDAL PO SCH (21:59)
[2018-07-28] MEDS: BUSPAR PO SCH (10:33)
[2018-07-28 11:27] VITALS: BP 117/73
== END 2018-07-28 12:22 ==
LOC: ED 10:41 → EEVIPCON 10:41 → ED 07-28 12:22
DX: F31.9 Bipolar disorder, unspecified (principal); R45.850 Homicidal ideations; R45.851 Suicidal ideations; F32.9 Major depressive disorder, single episode, unspecified
CPT/HCPCS: 36415; 80048; 80076; 80307; 81001; 85025; 99285; G0480; 80320